=== PATIENT | female | born 1945 | race Asian ===

== ENCOUNTER 2018-05-31 09:26 | Emergency (ER) | payer MEDICARE, OTHER, SELFPAY ==
--- NOTE | 2018-05-31 09:31 | ED.ABDPAIN ---
HPI - Abdominal Pain General Chief Complaint: Abdominal Pain Stated Complaint: REALLY BAD LOWER LEFT SIDE PAIN Time Seen by Provider: 05/31/18 09:29 Source: patient Mode of arrival: ambulatory Limitations: no limitations History of Present Illness HPI narrative: Patient is a 73-year-old female here for evaluation of left-sided abdominal pain. Patient states that it started within the past couple days. No urinary symptoms. No vaginal symptoms. No change in bowel habits. No blood in his stool. No nausea vomiting. States that it does hurt with palpation. States she has had a colonoscopy within the past 5 years and she was told that it was normal. Has not tried anything for this prior to arrival Related Data Home Medications Medication Instructions Recorded Confirmed albuterol sulfate [ProAir HFA] 1 puff INHALATION PRN PRN 05/31/18 05/31/18 azithromycin 1 tab PO QDX4 05/31/18 05/31/18 montelukast 1 tab PO DAILY 05/31/18 05/31/18 Previous Rx's Medication Instructions Recorded syakelewil-znuelrjaskbeq-wnxf 0 tab PO Q4HP PRN #20 tab 06/09/17 ciprofloxacin HCl 500 mg PO BID 10 Days #20 tab 05/31/18 metronidazole [Flagyl] 500 mg PO TID 10 Days #30 tab 05/31/18 Allergies Allergy/AdvReac Type Severity Reaction Status Date / Time No Known Allergies Allergy Uncoded 11/22/17 11:44 Review of Systems Constitutional Denies fever(s) Cardiovascular Denies chest pain and Denies dyspnea Respiratory Denies dyspnea Gastrointestinal Gastrointestinal: Reports abdominal pain, Denies change in bowel habits, Denies constipation, Denies diarrhea, Denies nausea and Denies vomiting Genitourinary Denies dysuria, Denies flank pain and Denies vaginal discharge Musculoskeletal Denies myalgias and Denies arthralgias Integumentary/Breasts Denies lesions and Denies rash Hematologic/Lymphatic Denies easy bleeding and Denies easy bruising [facility] Medical History H/O: hysterectomy (Acute) Healthy adult (Acute) Social History Smoking Status: Former smoker Exam Initial Vital Signs Initial Vital Signs: Vital Signs Temperature 98.7 F 05/31/18 09:35 Pulse Rate 85 05/31/18 09:35 Respiratory Rate 20 05/31/18 09:35 Blood Pressure 120/80 05/31/18 09:35 Pulse Oximetry 100 05/31/18 09:35 Const General: cooperative, healthy appearing, comfortable, well developed, well groomed and No acute distress Orientation: alert, awake and oriented x3 HENMT Head: normal to inspection and normocephalic Resp Effort & Inspection: normal respiratory effort Auscultation: clear to auscultation bilaterally Cardio Rate: regular rate Rhythm: regular rhythm Pulses: radial pulses present GI Inspection: non-distended Palpation: soft, No firm, No mass, No rigid and tender ( left upper quadrant left lower quadrant) Back/Spine/Pelvis Back: No CVA tenderness Skin Lesions: no lesions Rashes: no rashes Neuro General: alert, awake and oriented x3 Cognition: normal cognition Speech: speech normal Extrem General: normal to inspection and capillary refill normal Psych Appearance: grossly normal and well kempt Course Orders Ordered: ED Orders 05/31/18 10:10 Complete Blood Count AUTO DIFF Stat Comprehensive Metabolic Panel Stat Lipase Stat 05/31/18 10:38 CT abdomen pelvis w con Stat Discontinued Medications Sodium Chloride (Normal Saline 0.9%) 1,000 mls @ 1,000 mls/hr IV BOLUS ONE Stop: 05/31/18 10:29 Last Infusion: 05/31/18 11:26 Dose: 0 mls/hr Admin: 05/31/18 10:30 Dose: 1,000 mls/hr Vital Signs - 8 hr 05/31/18 09:35 05/31/18 10:54 Temperature 98.7 F Pulse Rate 85 78 Respiratory Rate 20 14 Blood Pressure 120/80 Blood Pressure [Left Arm] 110/69 Pulse Oximetry 100 99 MDM - Abdominal Pain Lab Data Attestation: I reviewed the patient's lab results. Result diagrams: 05/31/18 10:10 05/31/18 10:10 Lab Results 05/31/18 05/31/18 Range/Units 10:10 10:10 WBC 10.5 (4.5-11.0) X10^3/uL RBC 4.71 (4.0-5.2) X10^6/uL Hgb 14.2 (12.0-16.0) g/dL Hct 41.7 (36-46) % MCV 88.4 (80-100) fL MCH 30.2 (26-34) PG MCHC 34.1 (30-36) % RDW 13.5 (11.6-14.8) % Plt Count 164 (150-400) X10^3/uL Neut % (Auto) 76.8 H (50-75) % Lymph % (Auto) 12.9 L (25-40) % [place]quois % (Auto) 7.5 (3-14) % Eos % (Auto) 2.1 (2-4) % Baso % (Auto) 0.7 (0-2) % Neut # (Auto) 8100 H (6954-6870) /uL Sodium 141 (137-145) mmol/L Potassium 4.2 (3.4-5.1) mmol/L Chloride 105 (98-107) mmol/L Carbon Dioxide 28 (22-32) mmol/L BUN 13 (7-17) mg/dL Creatinine 0.70 (0.52-1.04) mg/dL Estimated GFR > 60.0 (>60) mL/min BUN/Creatinine Ratio 18.6 (6-22) Glucose 94 (80-110) mg/dL Calcium 9.4 (8.4-10.2) mg/dL Total Bilirubin 0.7 (0.2-1.3) mg/dL AST 23 (14-36) IU/L ALT 27 (9-52) IU/L Alkaline Phosphatase 57 (38-126) U/L Total Protein 7.2 (6.3-8.2) g/dL Albumin 4.4 (3.5-5.0) g/dL Globulin 2.8 (1.7-4.1) g/dL Albumin/Globulin Ratio 1.6 (1.0-2.8) Lipase 110 (23-300) U/L Imaging Data CT scan - abdomen: Radiologist's impression: [address] [address] [address] Scan Report Signed Patient: Sia Quevedo#: [id number] : 4Acct:[id number] Age/Sex: 73 / FDate of Service: 05/31/18 Loc: ED Accession Number: [id number] Procedure: CT abdomen pelvis w con Ordering Provider: Hamzah Johnson D.O. PROCEDURE: CT ABDOMEN PELVIS W CON INDICATIONS: Left-sided abdominal pain TECHNIQUE: After the administration of intravenous contrast, 5 mm thick sections acquired from the diaphragm to the symphysis. 5 mm coronal and sagittal reformats were acquired. For radiation dose reduction, the following was used: automated exposure control, adjustment of mA and/or kV according to patient size. COMPARISON: [facility], CT, ABDOMEN/PELVIS WITH CONTRAST, 11/04/2009, 16:23. FINDINGS: Image quality: Excellent. ABDOMEN: Lung bases: Mild dependent atelectasis in posterior aspect of bilateral lung bases are seen. Heart size is normal. Solid organs: Liver is normal in size and enhancement. Hepatic steatosis is again seen. Gallbladder contains numerous partially calcified stones. No gallbladder wall thickening or pericholecystic fluid.. Biliary system is non dilated. Pancreas enhances normally. Spleen is normal in size and enhancement. No adrenal nodules. Kidneys demonstrate normal size and enhancement, without hydronephrosis. Peritoneum and bowel: There is no gastric or small bowel wall thickening. No evidence of bowel obstruction. Wall thickening involving distal descending colon is seen with narrowing of the lumen and moderate pericolonic fat stranding suggestive of acute diverticulitis. Appendix is visualized and is within normal limits. There is no free fluid or free air. No discrete abscess collection. Nodes and vessels: No retroperitoneal or mesenteric adenopathy by size criteria. Aorta and inferior vena cava are normal in size. Miscellaneous: No ventral hernias. PELVIS: Genitourinary: Bladder wall thickness is normal. Miscellaneous: No inguinal hernias or adenopathy. Bones: No suspicious bony lesions. No vertebral body compression fractures. IMPRESSION: 1. Finding is consistent with acute diverticulitis involving distal descending colon. No evidence of perforation. No bowel obstruction. Normal appendix. No free fluid or free air. 2. Cholelithiasis, no CT evidence of acute cholecystitis. 3. Hepatic steatosis. Dictated by: Tomasz Guevara M.D. on 05/31/2018 at 11:25 MDM Narrative Medical decision making narrative: patient with a relatively benign abdominal exam. No white blood cell count. CT scan does show acute diverticulitis which does fit her history and presentation. Will start on antibiotics. No signs of abscess. No no indication for emergent surgical consultation. Patient does have a primary care doctor. We did discuss return precautions both her and her expressed understanding and agreement with plan. Discharge Plan Departure Patient Disposition: Home Clinical Impression: Diverticulitis Instructions: Diverticulitis Activity Restrictions/Additional Instructions: Make sure you increase your fluid intake. Call your primary care doctor for a follow-up. Take all of your prescriptions as directed. Return to the emergency department for any new or worsening symptoms Prescriptions: New metronidazole [Flagyl] 500 mg tablet 500 mg PO TID 10 Days Qty: 30 RF: 0 ciprofloxacin HCl 500 mg tablet 500 mg PO BID 10 Days Qty: 20 RF: 0 No Action granphjlxf-ozhcjuudmwrzg-uema 1 EACH tablet PO Q4HP PRNQty: 20 RF: 0 azithromycin 250 mg tablet 1 tab PO QDX4 RF: 0 montelukast 10 mg tablet 1 tab PO DAILY RF: 0 albuterol sulfate [ProAir HFA] 90 mcg/actuation HFA aerosol inhaler 1 puff Inhalation PRN PRN (Reason: Shortness Of Breath) RF: 0
[2018-05-31 09:35] VITALS: BP 120/80; PULSE 85; RESP 20; TEMP 37.1; O2SAT 100; BMI 24.4
[2018-05-31 10:24] LABS: Add Manual Diff / Slide Review NO; Basophils Percent Auto 0.7 % (0-2); Eosinophils Percent Auto 2.1 % (2-4); Hematocrit 41.7 % (36-46); Hemoglobin 14.2 g/dL (12.0-16.0); Lymphocytes Percent Auto 12.9 % (25-40); Mean Corpuscular HGB Conc 34.1 % (30-36); Mean Corpuscular Hemoglobin 30.2 PG (26-34); Mean Corpuscular Volume 88.4 fL (80-100); Monocytes Percent Auto 7.5 % (3-14); Neutrophils Absolute Auto 8100 /uL (3000-5900); Neutrophils Percent Auto 76.8 % (50-75); Platelet Count 164 X10^3/uL (150-400); Red Blood Cell Count 4.71 X10^6/uL (4.0-5.2); Red Cell Distribution Width 13.5 % (11.6-14.8); White Blood Cell Count 10.5 X10^3/uL (4.5-11.0)
[2018-05-31] MEDS: SODIUM CHLORIDE 0.9% 1,000 ML 1000 ML IV (10:30)
[2018-05-31 10:34] LABS: Alanine Aminotransferase 27 IU/L (9-52); Albumin 4.4 g/dL (3.5-5.0); Albumin Globulin Ratio 1.6 (1.0-2.8); Alkaline Phosphatase 57 U/L (38-126); Aspartate Aminotransferase 23 IU/L (14-36); BUN Creatinine Ratio 18.6 (6-22); Bilirubin Total 0.7 mg/dL (0.2-1.3); Blood Urea Nitrogen 13 mg/dL (7-17); Calcium 9.4 mg/dL (8.4-10.2); Carbon Dioxide 28 mmol/L (22-32); Chloride 105 mmol/L (98-107); Estimated Glomerular Filt Rate > 60.0 mL/min (>60); Globulin 2.8 g/dL (1.7-4.1); Glucose 94 mg/dL (80-110); HEMOLYSIS < 15 (0-50); Lipase 110 U/L (23-300); Potassium 4.2 mmol/L (3.4-5.1); Sodium 141 mmol/L (137-145); Total Protein 7.2 g/dL (6.3-8.2)
--- NOTE | 2018-05-31 10:38 | DI.CT.S_ITS ---
PROCEDURE: CT ABDOMEN PELVIS W CON INDICATIONS: Left-sided abdominal pain TECHNIQUE: After the administration of intravenous contrast, 5 mm thick sections acquired from the diaphragm to the symphysis. 5 mm coronal and sagittal reformats were acquired. For radiation dose reduction, the following was used: automated exposure control, adjustment of mA and/or kV according to patient size. COMPARISON: [facility], CT, ABDOMEN/PELVIS WITH CONTRAST, 11/04/2009, 16:23. FINDINGS: Image quality: Excellent. ABDOMEN: Lung bases: Mild dependent atelectasis in posterior aspect of bilateral lung bases are seen. Heart size is normal. Solid organs: Liver is normal in size and enhancement. Hepatic steatosis is again seen. Gallbladder contains numerous partially calcified stones. No gallbladder wall thickening or pericholecystic fluid.. Biliary system is non dilated. Pancreas enhances normally. Spleen is normal in size and enhancement. No adrenal nodules. Kidneys demonstrate normal size and enhancement, without hydronephrosis. Peritoneum and bowel: There is no gastric or small bowel wall thickening. No evidence of bowel obstruction. Wall thickening involving distal descending colon is seen with narrowing of the lumen and moderate pericolonic fat stranding suggestive of acute diverticulitis. Appendix is visualized and is within normal limits. There is no free fluid or free air. No discrete abscess collection. Nodes and vessels: No retroperitoneal or mesenteric adenopathy by size criteria. Aorta and inferior vena cava are normal in size. Miscellaneous: No ventral hernias. PELVIS: Genitourinary: Bladder wall thickness is normal. Miscellaneous: No inguinal hernias or adenopathy. Bones: No suspicious bony lesions. No vertebral body compression fractures. IMPRESSION: 1. Finding is consistent with acute diverticulitis involving distal descending colon. No evidence of perforation. No bowel obstruction. Normal appendix. No free fluid or free air. 2. Cholelithiasis, no CT evidence of acute cholecystitis. 3. Hepatic steatosis. Dictated by: Tomasz Guevara M.D. on 05/31/2018 at 11:25 Approved by: Tomasz Guevara M.D. on 05/31/2018 at 11:37
[2018-05-31 10:54] VITALS: BP 110/69; PULSE 78; RESP 14; O2SAT 99
[2018-05-31 12:05] VITALS: BP 144/77; PULSE 84; RESP 20; O2SAT 98
== END 2018-05-31 12:06 | disposition home or self-care (01) ==
PROVIDERS: Emergency Provider Emergency Medicine; Family Provider Family Medicine; PCP Family Medicine
DX: K57.92 Diverticulitis of intestine, part unspecified, without perforation or abscess without bleeding (principal)
CPT/HCPCS: 36591; 74177; 80053; 81003; 83690; 85025; 96360; 99283; 99285; Q9967

== ENCOUNTER → 2018-06-18 07:54 | Outpatient (CLI) | payer MEDICARE, OTHER, SELFPAY ==
--- NOTE | 2018-06-18 | DI.US.S_ITS ---
PROCEDURE: US ABDOMEN COMPLETE INDICATIONS: GALL STONES TECHNIQUE: Real-time scanning was performed of the abdominal and retroperitoneal organs, with image documentation. COMPARISON: [facility], CT, ABDOMEN/PELVIS WITH CONTRAST, 11/04/2009, 16:23. [facility], CT, CT ABDOMEN PELVIS W CON, 05/31/2018, 10:54. FINDINGS: Liver: Liver is diffusely increased in echogenicity. Rounded hypoechoic focus present within the lateral left hepatic lobe measuring 0.8 x 1.1 x 1.4 cm.. Normal hepatic size. Gallbladder: Multiple gallstones present. No gallbladder wall thickening or pericholecystic fluid. Negative sonographic Lopez sign. Biliary ducts: Intrahepatic bile ducts are non-dilated. Extrahepatic bile duct caliber measures 3.5 mm. Normal is 6-7 mm or less in diameter, or 10 mm or less post-cholecystectomy. Pancreas: Visualized portions of the pancreas are sonographically normal. Spleen: Spleen is normal in size and homogeneous in echotexture. Kidneys: Kidneys are normal in size and echotexture. Right kidney measures 9.1 cm long; left kidney measures 10.6 cm long. No hydronephrosis or nephrolithiasis. No solid masses. Aorta: Visualized aorta is normal in caliber at less than 3 cm. Iliacs: Proximal common iliac arteries are normal in caliber at less than 2.5 cm. IVC: Intrahepatic inferior vena cava is patent. Miscellaneous: No free abdominal fluid. IMPRESSION: 1. Increased hepatic echogenicity noted possibly related to hepatic steatosis but other sources of hepatocellular disease cannot be excluded. Recommend clinical correlation. 2. 1.1 x 0.8 x 1.4 cm hypoechoic focus within the left hepatic lobe. Recommend hepatic protocol CT for further assessment to exclude underlying neoplastic mass. 3. Cholelithiasis without acute cholecystitis. Dictated by: Aidan CROWELL Interpreted: Chelsie Henry MD on 06/18/2018 at 9:52 Approved by: Chelsie Henry M.D. on 06/18/2018 at 16:23
== END ==
PROVIDERS: Family Provider Family Medicine; PCP Family Medicine; Visit Provider Family Medicine
DX: K80.80 Other cholelithiasis without obstruction (principal); K76.9 Liver disease, unspecified
CPT/HCPCS: 76700

== ENCOUNTER → 2018-06-21 11:25 | Outpatient (CLI) | payer MEDICARE, OTHER, SELFPAY ==
[2018-06-21 14:24] LABS: BUN Creatinine Ratio 17.1 (6-22); Blood Urea Nitrogen 12 mg/dL (7-17); Estimated Glomerular Filt Rate > 60.0 mL/min (>60)
== END ==
PROVIDERS: Family Provider Family Medicine; PCP Family Medicine; Visit Provider Family Medicine
DX: K57.32 Diverticulitis of large intestine without perforation or abscess without bleeding (principal); K80.20 Calculus of gallbladder without cholecystitis without obstruction
CPT/HCPCS: 36415; 82565; 84520

== ENCOUNTER → 2018-06-26 09:30 | Outpatient (CLI) | payer MEDICARE, OTHER, SELFPAY ==
--- NOTE | 2018-06-26 | DI.CT.S_ITS ---
PROCEDURE: CT ABDOMEN WO/W CON INDICATIONS: ABDOMINAL PAIN RIGHT UPPER TECHNIQUE: 4 phase scanning was performed. Non-contrast 5 mm axial sections acquired from the diaphragm to the iliac crests. Following the administration of intravenous contrast, 5 mm thick arterial-phase, portal venous-phase, and 5-minute delayed phase images were acquired through the liver. 5 mm thick coronal and sagittal reformats were performed. For radiation dose reduction, the following was used: automated exposure control, adjustment of mA and/or kV according to patient size. COMPARISON: [facility], CT, CT ABDOMEN PELVIS W CON, 05/31/2018, 10:54. [facility], US, US ABDOMEN COMPLETE, 06/18/2018, 9:17. FINDINGS: Image quality: Excellent. Lung bases: Lung bases are clear. Heart size is normal. Liver: The liver demonstrates normal size. The liver density and enhancement characteristics are within normal limits, without significant fatty infiltration by CT. In this patient with this given history, scrutiny is given to the left lateral aspect of the liver at the site of the apparent small nodule seen on the recent prior ultrasound. No CT correlate is seen for this focus. Other solid organs: Gallbladder demonstrates numerous gallstones within its lumen. Biliary system is non dilated. Pancreas is normal in morphology. Spleen is normal in size and enhancement. No adrenal nodules. Both kidneys demonstrate normal size and enhancement, without hydronephrosis or nephrolithiasis. Nodes and vessels: No retroperitoneal or mesenteric adenopathy by size criteria. Aorta and inferior vena cava are normal in size. Bowel and peritoneum: Unenhanced bowel loops are normal in caliber. No free fluid or air. Bones: No suspicious bony lesions. No vertebral body compression fractures. Age-appropriate bony degenerative changes are seen, which are most prominent at the L4-L5 level. Miscellaneous: A trace periumbilical hernia is seen, containing fat. IMPRESSION: No correlate is seen for the ultrasound visible focus. This may be related to artifact or potentially to a benign process. Incidental note is made of: Numerous gallstones Focal L4-L5 degenerative change Trace periumbilical hernia Dictated by: Donato Galicia M.D. on 06/26/2018 at 11:17 Approved by: Donato Galicia M.D. on 06/26/2018 at 11:25
== END ==
PROVIDERS: Family Provider Family Medicine; PCP Family Medicine; Visit Provider Family Medicine
DX: R10.11 Right upper quadrant pain (principal); K80.80 Other cholelithiasis without obstruction; M51.36 Other intervertebral disc degeneration, lumbar region
CPT/HCPCS: 74170; Q9967

== ENCOUNTER 2018-08-30 12:44 | Day surgery (SDC) | payer MEDICARE, OTHER, SELFPAY ==
[2018-08-27 09:03] VITALS: BMI 24.4
[2018-08-30] VITALS (17 sets, daily range): BP systolic 105–157; BP diastolic 63–82; PULSE 56–96; RESP 12–18; TEMP 36.1–36.9; O2SAT 93–99; BMI 24.4
--- NOTE | 2018-08-30 | PATH_ITS ---
[facility] Accession Number: [id number] . 01 Material submitted: . GALLBLADDER . 02 Diagnosis: Gallbladder: Cholelithiasis with associated chronic cholecystitis. MRV/09/03/2018 . 02 Electronically signed: . Grey Miguel MD, Pathologist NPI- [id number] . 01 Gross description: . Received in formalin, labeled gallbladder, is an opened gallbladder (length-7.3 cm, diameter-2.8 cm) with sandoval-green smooth and shiny serosa and a patent cystic duct. No lymph nodes are identified. The lumen contains multiple dark red-brown shiny smooth hard calculi (4.7 x 3.2 x 1.2 cm) with bryan cut surfaces. The mucosa is prado smooth and flat. The wall is up to 0.1 cm thick. No nodules, masses or lesions are identified. Section code: (A1) cystic duct resection margin and two serial sections from the body; (A2) two longitudinal sections from the fundus. ([id number]) /[facility] . 02 Pathologist provided ICD-10: K80.64 . 02 CPT . 102206 Performed at: 01 [facility] [address], [place], [place] [id number] MD Power Lynn MD Phone: [phone] Performed at: 02 [facility] [place] [address] [place], [place] [id number] MD Marleny Oro MD Phone: [phone]
[2018-08-30] MEDS: LACTATED RINGERS 1,000 ML 100 ML IV (13:48)
[2018-08-30] MEDS: CEFAZOLIN 2 GM/100 ML FROZ.PIGGY IV (15:28)
--- NOTE | 2018-08-30 15:33 | SUR.OPER ---
Supine on padded OR bed, head on pillow, safety belt at thigh, left arm padded and tucked at side. Right arm secured on padded arm oard <90 degrees abduction. Legs uncrossed. Padded footboard in place. Tape over blanket to secure lower legs.
[2018-08-30] MEDS: BUPIVACAINE 0.5% (PF) VIAL 30 ML INJ (16:07)
[2018-08-30] MEDS: LACTATED RINGERS 1,000 ML 42 ML IV (16:45)
--- NOTE | 2018-08-30 17:15 | PM.OP.1 ---
Operative Date/Time/Diagnoses Date of procedure: 08/30/18 Time of procedure: 17:15 Post-op diagnosis: same (Chronic) Procedure & Clinicians Procedure: Laparoscopic cholecystectomy Same procedure as scheduled: Yes Indications: Gallstones Surgeon: David Ma Click Yes if Unassisted: Yes Anesthesia Type: General Operative Notes Findings: Thickened gallbladder filled with stones Closure Type: primary Specimen(s): other (Gallbladder and stones) Implants & Drains: None Estimated Blood Loss (mL): 30 Procedure in detail: The patient was placed supine on the operating room table and underwent general endotracheal anesthesia. She was prepped and draped in the usual fashion. Local anesthetic was infiltrated beneath the umbilicus. Small incision was made and carried down level of fascia the fascia was opened under direct vision as was the peritoneal cavity. A 12 mm port was inserted after placing 2 stay sutures of 0 Vicryl. The abdomen is insufflated and 3 additional ports were placed in the right costal margin after reposition the patient. The gallbladder was identified is a thickened weight structure. It was grasped and elevated. It was encased in fat lower half. This was dissected off. A ductal structure singular nature going directly gallbladder was identified and 4 clips were placed across it was divided leaving 3 new patient. I could not identify an artery in the new normal position despite a careful search for. There appeared to be some vascular structures entering posteriorly and these were clipped and divided leaving at least 2 clips on each. The gallbladder was then dissected from its bed and liver using cautery. It was detached removed the the umbilical port. There was spillage of the stones but these appear to be retrieved. The right upper quadrant irrigated and suctioned free of fluid. Meticulous hemostasis was achieved. The ports were all removed. The stay sutures at the umbilicus were tied and an additional 2 0 PDS was placed there. Wounds were irrigated and the skin was closed in all areas with 4 Vicryl subcuticular stitches and Steri-Strips. Dressing was applied and the patient was awakened extubated taken recovery room good condition Complications: none Condition: stable Disposition: PACU Plan for aftercare: Follow-up in the office
[2018-08-30] MEDS: fentaNYL 100 MCG/2 ML INJ 50 MCG IV ×2 (17:38→17:44)
[2018-08-30] MEDS: BENZOCAINE/MENTHOL 1 LOZ PKT 1 EACH PO ×2 (17:41→19:45)
[2018-08-30] MEDS: ONDANSETRON 4 MG/2 ML INJ IV (18:05)
[2018-08-30] MEDS: HYDROCODONE/ACET 5/325 TABLET 2 TAB PO (18:33)
--- NOTE | 2018-08-30 19:50 | SUR.PHASEII ---
194: assumed care of pt, report given to me by Fatuma Kee RN.
== END 2018-08-30 20:00 | disposition home or self-care (01) ==
PROVIDERS: Family Provider Family Medicine; PCP Family Medicine; Visit Provider Specialist
PROC: 0FT44ZZ Resection of Gallbladder, Percutaneous Endoscopic Approach (ICD-10-PCS; CPT 47562; principal; 2018-08-30 14:00)
DX: K80.20 Calculus of gallbladder without cholecystitis without obstruction (principal); J45.909 Unspecified asthma, uncomplicated
CPT/HCPCS: 47562; 88304; J0330; J0690; J2250; J2405; J2704; J3010

== ENCOUNTER → 2018-10-29 12:39 | Outpatient (CLI) | payer MEDICARE, OTHER, SELFPAY ==
--- NOTE | 2018-10-29 | DI.MG.S_ITS ---
BILATERAL DIGITAL SCREENING MAMMOGRAM 3D/2D WITH CAD: 10/29/2018 CLINICAL: Routine screening. Comparison is made to exams dated: 09/29/2017 mammogram, 09/04/2015 mammogram, and 09/02/2014 mammogram - [facility]. The tissue of both breasts is heterogeneously dense. This may lower the sensitivity of mammography. Current study was also evaluated with a Computer Aided Detection (CAD) system. There are benign post operative findings in the right breast. No significant masses, calcifications, or other findings are seen in either breast. There has been no significant interval change. IMPRESSION: There is no mammographic evidence of malignancy. A 1 year screening mammogram is recommended. This exam was interpreted at Station ID: [id number]. NOTE: For mammograms, a report in lay terms will be sent to the patient. Approximately 15% of breast malignancies will not be visualized mammographically. In the management of a palpable breast mass, a negative mammogram must not discourage biopsy of a clinically suspicious lesion. Electronically Signed By: Piyush phoenix/bo:10/29/2018 17:22:57 letter sent: Normal Exam ACR BI-RADS Category 2: Benign Finding(s) 3342F
== END ==
PROVIDERS: Family Provider Family Medicine; PCP Family Medicine; Visit Provider Family Medicine
DX: Z12.31 Encounter for screening mammogram for malignant neoplasm of breast (principal)
CPT/HCPCS: 77063; 77067

== ENCOUNTER → 2019-02-26 11:40 | Outpatient (CLI) | payer MEDICARE, OTHER, SELFPAY ==
--- NOTE | 2019-02-26 | DI.RAD.S_ITS ---
PROCEDURE: XR CHEST 2V INDICATIONS: Cough TECHNIQUE: 2 views of the chest were acquired. COMPARISON: None. FINDINGS: Surgical changes and devices: None. Lungs and pleura: Hyperinflation suggesting COPD. Lungs are clear. No pleural effusions or pneumothorax. Mediastinum: Mediastinal contours are normal. Heart size is normal. Bones and chest wall: No suspicious bony abnormalities. Soft tissues appear unremarkable. Degenerative changes noted in the thoracic spine. IMPRESSION: No acute cardiopulmonary disease. Suspect COPD. Dictated by: Kelley Villalpando M.D. on 02/26/2019 at 13:48 Approved by: Kelley Villalpando M.D. on 02/26/2019 at 13:49
== END ==
PROVIDERS: Family Provider Family Medicine; PCP Family Medicine; Visit Provider Family Medicine
DX: R05 Cough (principal); M47.814 Spondylosis without myelopathy or radiculopathy, thoracic region
CPT/HCPCS: 71046

== ENCOUNTER → 2019-03-08 10:51 | Outpatient (CLI) | payer MEDICARE, OTHER, SELFPAY ==
--- NOTE | 2019-03-15 16:28 | PM.PFT.1 ---
Pulmonary Function Test Referral & Results Date Patient Seen: 03/08/19 Requesting provider: Mami Mcdowell Indication: Cough Results: The spirometry demonstrates an FVC of 2.56 L which is 109% of predicted. The FEV1 was measured at 2.10 L which is 120% of predicted. The FEV1/FVC ratio was 82 which is 109% of predicted. Following the administration of bronchodilator there was 27% improvement in FEF 25-75%. Lung volumes show an SVC of 2.61 L which is 110% of predicted. The diffusing capacity was measured at 16.80 which is 89% of predicted. The maximum voluntary ventilation was slightly reduced Interpretation: This study demonstrates essentially normal pulmonary function There is a minimal amount of improvement in small airway flow after bronchodilator. There is minimal reduction in diffusing capacity and maximum voluntary ventilation is minimally reduced. Overall I would call this a normal study however.
== END ==
PROVIDERS: Family Provider Family Medicine; PCP Family Medicine; Visit Provider Family Medicine
DX: R05 Cough (principal)
CPT/HCPCS: 94060; 94726; 94729

== ENCOUNTER → 2019-12-31 14:47 | Outpatient (CLI) | payer MEDICARE, OTHER, SELFPAY ==
--- NOTE | 2019-12-31 | DI.MG.S_ITS ---
BILATERAL DIGITAL SCREENING MAMMOGRAM 3D/2D WITH CAD: 12/31/2019 CLINICAL: Routine screening. Comparison is made to exams dated: 10/29/2018 mammogram, 09/29/2017 mammogram, and 09/04/2015 mammogram - [facility]. The tissue of both breasts is heterogeneously dense. This may lower the sensitivity of mammography. Current study was also evaluated with a Computer Aided Detection (CAD) system. There are benign post operative findings in the right breast. No significant masses, calcifications, or other findings are seen in either breast. There has been no significant interval change. IMPRESSION: There is no mammographic evidence of malignancy. A 1 year screening mammogram is recommended. This exam was interpreted at Station ID: [id number]. NOTE: For mammograms, a report in lay terms will be sent to the patient. Approximately 15% of breast malignancies will not be visualized mammographically. In the management of a palpable breast mass, a negative mammogram must not discourage biopsy of a clinically suspicious lesion. Electronically Signed By: Piyush phoenix/bo:12/31/2019 15:30:03 letter sent: Normal Exam ACR BI-RADS Category 2: Benign Finding(s) 3342F
== END ==
PROVIDERS: Family Provider Family Medicine; PCP Family Medicine; Referring Provider Family Medicine; Visit Provider Family Medicine
DX: Z12.31 Encounter for screening mammogram for malignant neoplasm of breast (principal)
CPT/HCPCS: 77063; 77067

== ENCOUNTER → 2020-01-14 11:53 | Outpatient (CLI) | payer MEDICARE, OTHER, SELFPAY | PROVIDERS: Family Provider Family Medicine; PCP Family Medicine; Referring Provider Family Medicine; Visit Provider Family Medicine | DX: M85.851 Other specified disorders of bone density and structure, right thigh (principal); Z78.0 Asymptomatic menopausal state; M06.9 Rheumatoid arthritis, unspecified; Z87.891 Personal history of nicotine dependence | CPT/HCPCS: 77080 ==

== ENCOUNTER → 2021-01-04 11:16 | Outpatient (CLI) | payer MEDICARE, OTHER, SELFPAY ==
--- NOTE | 2021-01-04 11:18 | DI.MG.S_ITS ---
BILATERAL DIGITAL SCREENING MAMMOGRAM 3D/2D WITH CAD: 01/04/2021 CLINICAL: Routine screening. Comparison is made to exams dated: 12/31/2019 mammogram, 10/29/2018 mammogram, and 09/29/2017 mammogram - [facility]. The tissue of both breasts is heterogeneously dense. This may lower the sensitivity of mammography. Current study was also evaluated with a Computer Aided Detection (CAD) system. There are benign post operative findings in the right breast. No significant masses, calcifications, or other findings are seen in either breast. There has been no significant interval change. IMPRESSION: BENIGN There is no mammographic evidence of malignancy. A 1 year screening mammogram is recommended. This exam was interpreted at Station ID: [id number]. NOTE: For mammograms, a report in lay terms will be sent to the patient. Approximately 15% of breast malignancies will not be visualized mammographically. In the management of a palpable breast mass, a negative mammogram must not discourage biopsy of a clinically suspicious lesion. Electronically Signed By: Skinny baca/bo:01/04/2021 12:01:09 letter sent: Normal Exam ACR BI-RADS Category 2: Benign Finding(s) 3342F
== END ==
PROVIDERS: Family Provider Family Medicine; PCP Family Medicine; Referring Provider Family Medicine; Visit Provider Family Medicine
DX: Z12.31 Encounter for screening mammogram for malignant neoplasm of breast (principal)
CPT/HCPCS: 77063; 77067

== ENCOUNTER → 2022-01-05 15:43 | Outpatient (CLI) | payer MEDICARE, OTHER, SELFPAY ==
--- NOTE | 2022-01-05 15:45 | DI.MG.S_ITS ---
BILATERAL DIGITAL SCREENING MAMMOGRAM 3D/2D WITH CAD: 01/05/2022 CLINICAL: Routine screening. Comparison is made to exams dated: 01/04/2021 mammogram, 12/31/2019 mammogram, 10/29/2018 mammogram, and 09/29/2017 mammogram - [facility]. The tissue of both breasts is heterogeneously dense. This may lower the sensitivity of mammography. Current study was also evaluated with a Computer Aided Detection (CAD) system. There is a new 1.7 cm mass in the left breast central to the nipple middle depth. No other significant masses, calcifications, or other findings are seen in either breast. IMPRESSION: INCOMPLETE: NEEDS ADDITIONAL IMAGING EVALUATION The new 1.7 cm mass in the left breast is indeterminate. Additional views with possible ultrasound are recommended. This exam was interpreted at Station ID: [id number]. NOTE: For mammograms, a report in lay terms will be sent to the patient. Approximately 15% of breast malignancies will not be visualized mammographically. In the management of a palpable breast mass, a negative mammogram must not discourage biopsy of a clinically suspicious lesion. Electronically Signed By: Lobo Quan M.D. [facility]/:01/06/2022 09:36:02 letter sent: Additional Imaging Needed ACR BI-RADS Category 0: Incomplete 3340F
== END ==
PROVIDERS: Family Provider Family Medicine; PCP Family Medicine; Referring Provider Family Medicine; Visit Provider Family Medicine
DX: Z12.31 Encounter for screening mammogram for malignant neoplasm of breast (principal)
CPT/HCPCS: 77063; 77067

== ENCOUNTER → 2022-02-03 09:57 | Outpatient (CLI) | payer MEDICARE, OTHER, SELFPAY ==
--- NOTE | 2022-02-03 | DI.MG.S_ITS ---
UNILATERAL LEFT DIGITAL DIAGNOSTIC MAMMOGRAM 3D/2D WITH ADDITIONAL VIEWS: 02/03/2022 CLINICAL: Additional evaluation requested from prior study. Comparison is made to exams dated: 01/05/2022 mammogram, 01/04/2021 mammogram, 12/31/2019 mammogram, and 10/29/2018 mammogram - [facility]. The tissue of left breast is heterogeneously dense. This may lower the sensitivity of mammography. There is a new 2 cm oval high density mass with an indistinct and microlobulated margin in the left breast at 11 o'clock middle depth. This is seen in additional views. No other significant masses or calcifications are seen in the breast. IMPRESSION: INCOMPLETE: NEEDS ADDITIONAL IMAGING EVALUATION The new 2 cm oval high density mass in the left breast is indeterminate. An ultrasound is recommended. Based on the Tyrer Cuzick model (a risk assessment model) the patient's lifetime risk is 2.6% and her 10 year risk is 0.0%. According to the ACR, ACS, and NCCN guidelines, an annual breast MRI exam along with mammogram is recommended if the patient's lifetime risk is 20% or greater. This exam was interpreted at Station ID: [id number]. NOTE: For mammograms, a report in lay terms will be sent to the patient. Approximately 15% of breast malignancies will not be visualized mammographically. In the management of a palpable breast mass, a negative mammogram must not discourage biopsy of a clinically suspicious lesion. Electronically Signed By: Skinny baca/bo:02/03/2022 14:20:11 ACR BI-RADS Category 0: Incomplete 3340F
--- NOTE | 2022-02-03 | DI.US.S_ITS ---
LIMITED ULTRASOUND OF LEFT BREAST AND AXILLA: 02/03/2022 CLINICAL: Patient returns for additional imaging over a suspected mass in the left breast. Comparison is made to exams dated: 02/03/2022 mammogram, 01/04/2021 mammogram, 01/05/2022 mammogram, 12/31/2019 mammogram, and 10/29/2018 mammogram - [facility]. Color flow and real-time ultrasound of the left breast 11 o'clock, and axilla regions were performed. Perry scale images of the real-time examination were reviewed. There is a 2 cm x 1.8 cm x 1.5 cm oval mass with an indistinct margin in the left breast at 11 o'clock middle depth 1 cm from the nipple. This oval mass is hypoechoic and isoechoic with posterior acoustic enhancement. This correlates with mammography findings. No significant abnormalities were seen sonographically in the left axilla. IMPRESSION: SUSPICIOUS OF MALIGNANCY The 2 cm x 1.8 cm x 1.5 cm oval mass in the left breast is at a high suspicion for malignancy. An ultrasound guided biopsy is recommended. The findings and recommendations were discussed with the patient by the onsite radiologist, Dr. Wolff, at the time of the exam. This exam was interpreted at Station ID: [id number]. Electronically Signed By: Skinny baca/bo:02/03/2022 14:24:16 letter sent: Biopsy Required Ultrasound BI-RADS: 4c High suspicion of malignancy
== END ==
PROVIDERS: Family Provider Family Medicine; PCP Family Medicine; Referring Provider Family Medicine; Visit Provider Family Medicine
DX: R92.8 Other abnormal and inconclusive findings on diagnostic imaging of breast (principal); N63.20 Unspecified lump in the left breast, unspecified quadrant
CPT/HCPCS: 76642; 77065; G0279

== ENCOUNTER → 2022-02-10 10:28 | Outpatient (CLI) | payer MEDICARE, OTHER, SELFPAY ==
--- NOTE | 2022-02-10 | PATH_ITS ---
[facility] Accession Number: [id number] . 01 Material submitted: . breast - LEFT BREAST MASS 11:00, 1 CM FROM NIPPLE . 01 Diagnosis: Left Breast, 11 o'clock, 1 cm from Nipple, Image-Guided Core Biopsy: Mucinous carcinoma, Grade 1. -Keystone score: 5 out of 9 possible (histologic=2, nuclear=2, mitotic index =1). -In situ carcinoma: Not identified. -Greatest linear length of invasive carcinoma: 0.6 cm. -Lymphovascular invasion: Not identified. -Microcalcifications: Not identified. -Predictive markers: Estrogen receptor/progesterone receptor/HER2 by immunohistochemistry pending (reported as an addendum). [facility] 02/11/2022 1443 Local . 01 Comment: The results of this case are verbally provided by Dr. Ortiz to Dr. Jaime Palomo on 02/11/2022 at 1:30 p.m. . 01 Electronically signed: . Aishwarya Ortiz MD, Pathologist NPI- [id number] . 01 Gross description: . Received one formalin-filled container, labeled with the patient's name and left breast 11 o'clock. The specimen is received with a plastic filter in container, sample loose in container and consists of two yellow-sandoval, cylindrical-shaped portions of tissue which range in size from 0.8 x 0.3 x 0.3 cm to 1.0 x 0.2 x 0.2 cm and a large amount of blood and possible mucoid material. The specimen is entirely submitted in one cassette. Possible collection date and time per requisition: 02/10/2022 at 11:47. Total fixation time: Approximately 15 hours. ([id number]) /MAXI 02/11/2022 0239 Local . 01 Pathologist provided ICD-10: C50.912 . 01 CPT . 796258, 661854, 141987, 581363 Performed at: 01 [facility] [address] [place] [id number] MD Power Lynn MD Phone: [phone]
--- NOTE | 2022-02-10 | DI.MG.S_ITS ---
UNILATERAL LEFT DIGITAL DIAGNOSTIC MAMMOGRAM 3D/2D: 02/10/2022 CLINICAL: Post biopsy left. Comparison is made to exams dated: 02/03/2022 ultrasound, 02/03/2022 mammogram, and 01/05/2022 mammogram - [facility]. The tissue of left breast is heterogeneously dense. This may lower the sensitivity of mammography. The biopsy clip is in the targeted area. IMPRESSION: INCOMPLETE: NEEDS ADDITIONAL IMAGING EVALUATION Biopsy clip is in the targeted area. Based on the Tyrer Cuzick model (a risk assessment model) the patient's lifetime risk is 2.6% and her 10 year risk is 0.0%. According to the ACR, ACS, and NCCN guidelines, an annual breast MRI exam along with mammogram is recommended if the patient's lifetime risk is 20% or greater. This exam was interpreted at Station ID: [id number]. NOTE: For mammograms, a report in lay terms will be sent to the patient. Approximately 15% of breast malignancies will not be visualized mammographically. In the management of a palpable breast mass, a negative mammogram must not discourage biopsy of a clinically suspicious lesion. Electronically Signed By: Kelley Villalpando M.D. fx/:02/10/2022 14:15:51 ACR BI-RADS Category 0: Incomplete 3340F
--- NOTE | 2022-02-10 | DI.US.S_ITS ---
ULTRASOUND GUIDED BIOPSY LEFT BREAST USING VACUUM DEVICE WITH POST MAMMOGRAPHIC AND ULTRASOUND IMAGIN02/10/2022 CLINICAL: Left breast mass. PATIENT CONSENT: Risks (minor bleeding, infection, vasovagal reaction and repeat procedure), benefits and alternatives were explained to the patient and written informed consent was obtained. Correlation is made to exams dated: 02/03/2022 ultrasound, 02/03/2022 mammogram, 01/05/2022 mammogram, 01/04/2021 mammogram, 12/31/2019 mammogram, and 10/29/2018 mammogram - [facility]. An ultrasound guided biopsy using real-time ultrasound was performed for the oval mass located in the left breast at 11 o'clock posterior depth. This was described on the previous ultrasound report. The skin was prepped in the usual manner. Local anesthetic was administered to the access site. The abnormality was approached from the lateral aspect. A 13 gauge biopsy needle was placed adjacent to the abnormality under ultrasound guidance. Once the needle was documented to be in the correct location, five specimens were obtained using the Mammotome biopsy system. Post procedure mammographic and ultrasound imaging demonstrates the clip at the targeted area. The specimens were sent to the laboratory for pathological analysis. IMPRESSION: ULTRASOUND GUIDED BIOPSY MALIGNANT Ultrasound guided biopsy of the mass in the left breast posterior depth was successful. Pathology indicates malignant invasive mucinous carcinoma. Pathology results are concordant with imaging findings. A surgical/oncologic consultation is recommended. This exam was interpreted at Station ID: [id number]. Kelley Brasher M.D. fx,aty/:02/16/2022 19:28:20
== END ==
PROVIDERS: Family Provider Family Medicine; PCP Family Medicine; Referring Provider Family Medicine; Visit Provider Family Medicine
DX: C50.212 Malignant neoplasm of upper-inner quadrant of left female breast (principal); Z17.0 Estrogen receptor positive status [ER+]
CPT/HCPCS: 19083; 77065

== ENCOUNTER 2022-02-15 06:16 | Day surgery (SDC) | payer MEDICARE, OTHER, SELFPAY ==
[2022-02-15 07:16] LABS: COVID19 -Nasal RAPID Negative (Negative)
[2022-02-15 07:19] VITALS: BP 110/79; PULSE 80; RESP 16; TEMP 36.2; O2SAT 100; BMI 23.4
[2022-02-15 07:28] VITALS: BMI 23.4
[2022-02-15] MEDS: LACTATED RINGERS 1,000 ML 200 ML IV (07:35)
--- NOTE | 2022-02-15 07:40 | PM.HP.1 ---
History of Present Illness History of Present Illness Date Patient Seen: 02/15/22 Time Patient Seen: 07:40 Chief complaint: SDC Narrative: The patient presents for colorectal screening. She had a previous colonoscopy approximately 5 years ago which she reports was normal. No personal or family history of colon cancer. On further history denies any recent gastrointestinal symptoms she does have remote history of diverticulitis.. No nausea, vomiting, abdominal pain, loss of appetite, unexplained weight loss, change in bowel habits, diarrhea, constipation, melena, hematochezia, or bright red blood per rectum. Patient History Medical History Healthy adult History of diverticulitis Surgical History H/O: hysterectomy Family & Social History Social History: household members spouse Tobacco & Substance use: Tobacco type cigarettes Smoking Status Former smoker alcohol intake never Substance Use Type does not use Meds Home Medications and Allergies Home Medications Medication Instructions Recorded Confirmed Type albuterol sulfate 90 mcg/actuation 1 puff inhalation PRN PRN 05/31/18 02/15/22 History aerosol inhaler Shortness Of Breath montelukast 10 mg tablet 1 tab PO DAILY 05/31/18 02/15/22 History aspirin 81 mg tablet,delayed 81 mg PO DAILY 08/22/18 02/15/22 History release calcium carbonate 600 mg calcium 600 mg PO DAILY 08/22/18 02/15/22 History (1,500 mg) tablet (Calcium) cholecalciferol (vitamin D3) 50 2,000 unit PO DAILY 08/22/18 02/15/22 History mcg (2,000 unit) capsule coenzyme [id number]-[id number] E 100 mg-100 1 cap PO DAILY 08/22/18 02/15/22 History unit capsule acyclovir 400 mg tablet 400 mg PO DAILY 02/15/22 02/15/22 History Allergies Allergy/AdvReac Type Severity Reaction Status Date / Time No Known Drug Allergies Allergy Verified 02/15/22 07:29 Exam Vital Signs (past 8 hours): - 02/15/22 07:19 Temperature 97.1 F L Pulse Rate 80 Respiratory Rate 16 Blood Pressure 110/79 Pulse Oximetry 100 Oxygen Delivery Method Room Air Oxygen Delivery Method Room Air Narrative Exam Narrative: General adult woman alert oriented no acute distress Abdomen soft nontender nondistended Extremities warm well perfused Objective Labs Labs: Laboratory Results - last 24 hr 02/15/22 06:40 SARS-CoV-2 (PCR) Negative Assessment & Plan Assessment & Plan narrative: The patient requires colorectal screening and colonoscopy is recommended. Technical details were discussed. Risks, benefits, alternatives explained. Risks including but not limited to myocardial infarction, aspiration, bleeding, pain, missed lesion, incomplete examination, need for further radiographic studies, colonic perforation, and need for major abdominal surgery were discussed. All questions were answered to their satisfaction, and they are in agreement with this plan. Time Spent With Patient Critical Care time: I spent a total of [] minutes of critical care time on this patient's care today; this time is exclusive of procedural time.
[2022-02-15] MEDS: fentaNYL 250 MCG/5 ML INJ 50 MCG IV (07:50)
[2022-02-15] MEDS: MIDAZOLAM 5 MG/5 ML VIAL 3 MG IV (07:50)
--- NOTE | 2022-02-15 08:09 | P.OP.COLON_ITS ---
Operative Date/Time/Diagnoses Date of procedure: 02/15/22 Time of procedure: 08:09 Pre-op diagnosis: Screening Post-op diagnosis: same Procedure & Clinicians Study performed: Colonoscopy Same procedure as scheduled: Yes Indications: Screening Surgeon: Danilo Barney Procedure Notes Procedure in detail: Medications: Conscious sedation using 3 mg IV midazolam and 50 mcg IV of fentanyl The history and physical was performed/updated and the patient is ASA class is 2. The procedure was discussed in detail with the patient. Potential risks complications including infection, bleeding, missed diagnosis, perforation, need for surgery, and were explained. Their questions were answered and informed consent was obtained. Patient was brought to the procedure room and placed standard monitoring equipment. The patient's vital signs were monitored continuously throughout the entire procedure. Prior to starting time-out was performed. The patient was placed in the left lateral recumbent position. Procedural sedation was administ ered. Examination began with a thorough inspection of the perianal area there was no evidence of fissures, fistulae, external hemorrhoids or cutaneous malignancy. The colonoscopy scope was then placed into the anal canal and was advanced to the cecum, which was identified by the ileocecal valve, the appendiceal orifice and the confluence of the taenia. The scope was then slowly withdrawn examining colon thoroughly in all directions, irrigating it of any residual stool. FINDINGS 1. No masses polyps 2. [id number] The patient tolerated the procedure well. They will be discharged once criteria are met. The prep was of good/excellent quality. The withdrawl time was 6 minutes. The sedation time was 16 minutes. Specimen(s): none sent Complications: none Impression: Normal colonoscopy Post-procedure Recommendations: Colonoscopy in 10 years and High fiber diet Disposition: same day surgery
[2022-02-15 08:11] VITALS: BP 108/62; PULSE 73; RESP 14; TEMP 36.5; O2SAT 99
[2022-02-15 08:15] VITALS: BP 106/69; PULSE 72; RESP 14; O2SAT 100
[2022-02-15 08:20] VITALS: BP 101/68; PULSE 80; RESP 16; O2SAT 98
[2022-02-15 08:26] VITALS: BP 114/76; PULSE 81; RESP 18; TEMP 36.6; O2SAT 98
--- NOTE | 2022-02-15 08:30 | SUR.PHASEII ---
Discharge instructions went over with her. Pt has no complaints Pt denies any pain and nausea. Pt to be discharged with her .
--- NOTE | 2022-02-15 08:42 | SUR.PHASEII ---
Discharge instructions reviewed with pt and she verbalized understanding.
== END 2022-02-15 08:55 | disposition home or self-care (01) ==
PROVIDERS: Family Provider Family Medicine; PCP Family Medicine; Referring Provider Surgery; Visit Provider Surgery
PROC: 0DJD8ZZ Inspection of Lower Intestinal Tract, Via Natural or Artificial Opening Endoscopic (ICD-10-PCS; CPT 45378; principal; 2022-02-15 07:45)
DX: Z12.11 Encounter for screening for malignant neoplasm of colon (principal); Z20.822 Contact with and (suspected) exposure to COVID-19; K57.30 Diverticulosis of large intestine without perforation or abscess without bleeding
CPT/HCPCS: G0121; 87635; 99152; C9803; J2250; J3010

== ENCOUNTER → 2022-03-17 10:01 | Outpatient (CLI) | payer MEDICARE, OTHER, SELFPAY ==
[2022-03-17 10:43] LABS: COVID19 -Nasal RAPID Negative (Negative)
== END ==
PROVIDERS: Family Provider Family Medicine; PCP Family Medicine; Visit Provider Surgery
DX: Z20.822 Contact with and (suspected) exposure to COVID-19 (principal); Z01.812 Encounter for preprocedural laboratory examination
CPT/HCPCS: 87635; C9803

== ENCOUNTER → 2022-03-18 07:43 | Outpatient (CLI) | payer MEDICARE, OTHER, SELFPAY ==
--- NOTE | 2022-03-18 07:44 | DI.NM.S_ITS ---
PROCEDURE: NM SENTINEL NODE INJECT ONLY RADIOPHARMACEUTICAL: 1.0 mCi Millipore filtered Tc-99m sulfur colloid. INDICATIONS: Left breast cancer COMPARISON: None. PROCEDURE: The area around the nipple was prepped and draped in a sterile fashion. Tc-99m sulfur colloid was injected intra-dermally around the outer edge of the areola in the left breast. No image was obtained. IMPRESSION: Administration of radiotracer into the left breast periareolar region for intra-operative sentinel lymph node localization. Dictated by: Carmella Mcarthur MD, PhD on 03/18/2022 at 9:55 Approved by: Carmella Mcarthur MD, PhD on 03/18/2022 at 9:55
== END ==
PROVIDERS: Family Provider Family Medicine; PCP Family Medicine; Referring Provider Surgery; Visit Provider Surgery
DX: C50.912 Malignant neoplasm of unspecified site of left female breast (principal)
CPT/HCPCS: 38792; A9541

== ENCOUNTER 2022-03-18 07:45 | Day surgery (SDC) | payer MEDICARE, OTHER, SELFPAY ==
[2022-03-18] VITALS (8 sets, daily range): BP systolic 134–157; BP diastolic 70–88; PULSE 64–80; RESP 12–16; TEMP 36.1–36.8; O2SAT 95–100; BMI 24.0
--- NOTE | 2022-03-18 | PATH_ITS ---
[facility] Accession Number: [id number] . 01 Material submitted: . PART A: breast - LEFT BREAST PART B: lymph node - LEFT SENTINEL LYMPH NODES . 01 Clinical history: . SDC MALIGNANT NEOPLASM OF UNSPECIFIED SITE A: SUTURE LONG LATERAL, SHORT SUPERIOR . 01 Diagnosis: A. Left Breast, Mastectomy: Mucinous carcinoma. Please see CAP Summary Data below. . B. Left [place] Lymph Nodes, Excision: Five sentinel lymph nodes negative for metastatic carcinoma. Please see CAP Summary Data below. . CASE SUMMARY: Invasive carcinoma of breast. . Procedure: Total mastectomy. Specimen laterality: Left. Tumor site: 11 o'clock. Histologic type: Mucinous carcinoma. Histologic grade (Gil Histologic Score). Glandular/tubular differentiation: Score 3. Nuclear pleomorphism: Score 2. Mitotic rate: Score 1. Overall grade: Grade 2. Tumor size: Greatest dimension of largest invasive focus: 18 mm. Tumor focality: Single focus of invasive carcinoma. Ductal carcinoma in situ: Not identified. Lymphovascular invasion: Not identified. Dermal lymphovascular invasion: Not identified. Microcalcifications: Present in nonneoplastic tissue. Treatment effect in the breast: No known presurgical therapy. Treatment effect in the lymph nodes: Not applicable. . Margin status for invasive carcinoma: All margins negative for invasive carcinoma. Distance from invasive carcinoma to closest margin: 2.5 cm. Closest margin to invasive carcinoma: Posterior. . Regional lymph node status: All regional lymph nodes negative for tumor. Total number of lymph nodes examined: Five. Number of sentinel nodes examined: Five. . Pathologic stage classification (AJCC 8th Edition) pT category: pT1c. pN category: pN0(sn). pM category: Not applicable. . Additional findings: Changes consistent with prior biopsy procedure. . Breast biomarker testing performed on previous biopsy ([id number]): Estrogen receptor status: Positive, 95%, strong intensity. Progesterone receptor status: Positive, 20%, intermediate intensity. HER2 by immunohistochemistry: Negative, score 0. [facility] 03/22/2022 1243 Local . 01 Electronically signed: . Marleny Oro MD, Pathologist NPI- [id number] . 01 Gross description: . A. Received in formalin labeled with the patient's name and left breast consists of an oriented excision of breast with attached ellipse of skin, nipple, and areolar complex, with a short suture designated superior and long suture designated lateral per the requisition. The specimen measures 10.2 cm SI, 12.8 cm ML and 4.5 cm AP. The cutaneous surface is prado and wrinkled while the nipple and areolar complex is slightly sunken, but otherwise unremarkable. The ellipse of skin measures 8.5 x 5.5 cm. The specimen is inked as follows: Anterior yellow, posterior black, medial blue, inferior red, lateral green, superior orange. Serial sectioning, from medial to lateral into 19 slices, reveals a firm ill-defined hemorrhagic and necrotic lesion within slices 6-15 measuring approximately 4.5 x 4.2 x 1.0 cm, with the closest margin being the posterior margin at approximately 2.5 cm. A cylindrical biopsy clip is found within slice 9, and is located 3.0 cm from the nearest posterior margin. No other lesions are identified, and the remaining parenchyma is yellow to pink fibroadipose tissue with fibrous tissue occupying approximately 20% of the cut surface. [employer] sections are submitted as follows: . A1: Central nipple. A2: Rep slice 4 with posterior margin. A3-A4: Rep slice 6 to include superior and posterior margins. A5-A6: Rep slice 7 to include posterior and inferior margins. A7: Rep slice 8. A8-A9: Rep slice 9 to include posterior margin. A10-A12: Rep 12 to include posterior, superior, and inferior margins. A13: Rep 15 to include posterior margin. A14: Rep medial margin. A15: Rep lateral margin. . The specimen was removed on 03/18/2022 with no removal time or time in formalin provided. Cold ischemic time cannot be calculated. Total fixation time is less than 72 hours. . B. Received in formalin labeled with the patient's name and left sentinel lymph nodes consist of multiple fragments of soft yellow adipose aggregating to 3.4 x 2.6 x 1.7 cm with five prado lymph node candidates ranging from 0.3 to 1.5 cm in greatest dimension. The specimen is submitted as follows: . B1: Single lymph node candidate; bisected. B2: Three lymph node candidates, intact. B3: Single intact lymph node candidate. ([id number]) /MRV 03/20/2022 1908 Local . 01 Pathologist provided ICD-10: C50.912 . 01 CPT . 546073, 690041 Specimen Comment: A courtesy copy of this report has been sent to [phone] Performed at: 01 [facility] [address] [place] [address], [place], [place] [id number] MD Power Lynn MD Phone: [phone]
[2022-03-18] MEDS: LACTATED RINGERS 1,000 ML 100 ML IV (08:27)
--- NOTE | 2022-03-18 11:03 | PM.PREOP ---
Pre-operative Note Interval Note History & Physical reviewed/Exam performed by Physician: Yes Changes to H&P: No
--- NOTE | 2022-03-18 12:55 | SUR.PREOP ---
Updated patient regarding status and apologized for delay. Also called patient's and gave an update.
--- NOTE | 2022-03-18 15:15 | SUR.OPER ---
Supine on padded OR bed, head on pillow, arms secured on padded arm boards at <90 degrees abduction, legs uncrossed, safety belt at thigh, tape over blanket over lower legs.
[2022-03-18] MEDS: CEFAZOLIN 2 GM IN 0.9 % NACL 100 ML IV (15:45)
[2022-03-18] MEDS: LIDOCAINE 1% 20 ML INJ (15:59)
[2022-03-18] MEDS: BUPIVACAINE 0.5% W/ EPI (PF) 30 ML VIAL INJ (16:03)
[2022-03-18] MEDS: METHYLENE BLUE 50 MG/10 ML VIAL 10 MG IV (16:05)
[2022-03-18] MEDS: ACETAMINOPHEN 325 MG TABLET 650 MG PO (17:39)
--- NOTE | 2022-03-18 18:17 | SUR.PHASEII ---
1800: Pt A&Ox4, VSS, dressing C/D/I, reports pain as tolerable and ready to discharge home. Discharge instructions reviewed with patient and spouse with teaching on proper drain emptying/monitoring completed with demonstration and teachback, and time allowed for questions. Written instructions given to spouse. Pt left unit stable via w/c and RN assist to ER entrance where spouse will transport pt home.
--- NOTE | 2022-03-18 21:15 | P.OP_ITS ---
Operative Date/Time/Diagnoses Date of procedure: 03/18/22 Time of procedure: 21:15 Pre-op diagnosis: left breast cancer Post-op diagnosis: same Procedure & Clinicians Procedure: left mastectomy with sentinel lymph node biopsy Same procedure as scheduled: Yes Indications: invasive left breast cancer Surgeon: Danilo Barney Click Yes if Unassisted: Yes Anesthesia Type: General Operative Notes Findings: firm 4 cm mass of the left breast. Several slightly firm feeling lymph nodes within the left axilla Specimen(s): other ( left breast short stitch superior long stitch lateral. Left sentinel lymph nodes) Estimated Blood Loss (mL): 50 Procedure in detail: Patient was brought to the operating room placed supine on the table. Bilateral lower extremity compression devices were applied. She received 2 g of Ancef prior to skin incision. She was intubated with an endotracheal tube. She was then prepped and draped in sterile fashion. Time-out was performed. I injected 1 mL of methylene blue diluted with 4 ml saline into the periareolar tissue and massaged it into the breast for 5 minutes. An elliptical incision around the left nipple areola complex was made with the knife. The subcutaneous tissue was divided with electrocautery. Skin flaps were raised to separate the breast tissue from the skin along the subdermal plexus. The dissection was extended superior to the clavicle, medial to the sternum, inferior the the inframamary fold and lateral to the anterior border of the latisimus dorsi. Next the breast tissue was from the underlying pectoralis fascia. The breast was passed off the field marked short stitch superior long stitch lateral. The axillary tissue was carefully dissected towards the area of maximal radioactivity. Two sentinel lymph node were identified by there high radioactivity however they had not stained blue.. The lymphatics were clipped with heomolips and transected sharply. I returned the gamma probe to the field and there was no significant background activity. However in palpating the axillary tissue there were a couple slightly firm axillary nodes were palpated and these were subsequently removed. A 19 Bulgarian Bladimir drain was placed into the cavity and secured. The wound was copiously irrigated and homeostasis was ensured. The mastectomy was closed with 3 0 Vicryl for the subcutaneous tissue and the skin was closed with 4 0 Monocryl followed by the application of Dermabond. Patient tolerated procedure well she emerged from anesthesia was extubated and transferred to recovery room in stable condition. Complications: none Post-operative Condition: stable Disposition: same day surgery
== END 2022-03-18 18:00 | disposition home or self-care (01) ==
PROVIDERS: Family Provider Family Medicine; PCP Family Medicine; Referring Provider Surgery; Visit Provider Surgery
PROC: 0HTU0ZZ Resection of Left Breast, Open Approach (ICD-10-PCS; CPT 19303; principal; 2022-03-18 13:45)
DX: C50.112 Malignant neoplasm of central portion of left female breast (principal); Z17.0 Estrogen receptor positive status [ER+]; C77.3 Secondary and unspecified malignant neoplasm of axilla and upper limb lymph nodes
CPT/HCPCS: 19303; 38500; 38792; 82962; A9541; J0690; J1100; J2250; J2405; J2704; J3010; Q9968

== ENCOUNTER → 2022-04-05 15:07 | Outpatient (CLI) | payer MEDICARE, OTHER, SELFPAY | PROVIDERS: Family Provider Family Medicine; PCP Family Medicine; Referring Provider Family Medicine; Visit Provider Family Medicine | DX: Z13.820 Encounter for screening for osteoporosis; C50.112 Malignant neoplasm of central portion of left female breast; M85.851 Other specified disorders of bone density and structure, right thigh; M85.852 Other specified disorders of bone density and structure, left thigh; Z78.0 Asymptomatic menopausal state | CPT/HCPCS: 77080 ==

== ENCOUNTER 2022-04-05 15:45 | Emergency (ER) | payer MEDICARE, OTHER, SELFPAY ==
[2022-04-05 16:09] VITALS: BP 179/80; PULSE 66; RESP 18; TEMP 36.6; O2SAT 100; BMI 23.8
--- NOTE | 2022-04-05 16:16 | DI.CT.S_ITS ---
PROCEDURE: CT FACIAL BONES WO CON INDICATIONS: fall, brusing around L eye TECHNIQUE: Noncontrast 2.5 mm thick axial images acquired from the mandible through the frontal sinuses, with coronal and sagittal reformatting. For radiation dose reduction, the following was used: automated exposure control, adjustment of mA and/or kV according to patient size. COMPARISON: None. FINDINGS: Image quality: Excellent. Bones and teeth: Orbital nathan are intact. Sinus nathan show no fracture or deformity. Nasal bones and septum are intact. Visualized portions of the mandible demonstrate no fractures or subluxation. Zygomatic arches are intact. Pterygoid plates are intact. Visualized portions of the skull base and auditory canals are intact. Sinuses: Paranasal sinuses are aerated, without fluid levels, mucosal thickening, or mucoceles. Mastoid air cells are aerated. Soft tissues: No edema, masses, or fluid collections. No enlarged lymph nodes. No soft tissue lacerations or debris. Vascular: Visualized vascular structures appear normal in the absence of contrast. Bony vascular foramina and canals are intact. IMPRESSION: No evidence of displaced facial bone fracture or mandibular fracture. Globes are and orbits intact. Dictated by: Tim Hernandez M.D. on 04/05/2022 at 16:36 Approved by: Tim Hernandez M.D. on 04/05/2022 at 16:37
--- NOTE | 2022-04-05 16:16 | DI.CT.S_ITS ---
PROCEDURE: CT HEAD/BRAIN WO CON INDICATIONS: fall, brusing around L eye TECHNIQUE: Noncontrast 4.5 mm thick angled axial sections acquired from the foramen magnum to the vertex, with coronal and sagittal reformats. For radiation dose reduction, the following was used: automated exposure control, adjustment of mA and/or kV according to patient size. COMPARISON: [facility], CT, HEAD WITHOUT CONTRAST, 06/09/2017, 11:01. FINDINGS: Image quality: Excellent. CSF spaces: Basal cisterns are patent. No extra-axial fluid collections. The ventricles are symmetric in size and shape. Brain: No intracranial bleeds or masses. There is cerebral volume loss for age, with resultant ventricular and sulcal prominence. There are periventricular and deep white matter chronic small vessel ischemic changes. There is intracranial internal carotid artery atherosclerosis. Skull and face: Calvarium and visualized facial bones appear intact, without suspicious lesions. Sinuses: Visualized sinuses and mastoids are clear. IMPRESSION: No evidence acute intracranial process. Dictated by: Tim Hernandez M.D. on 04/05/2022 at 16:35 Approved by: Tim Hernandez M.D. on 04/05/2022 at 16:36
--- NOTE | 2022-04-05 18:23 | ED_ITS ---
HPI - Fall <RICH Lin - Last Filed: 04/05/22 18:44> General Chief Complaint: Fall Stated Complaint: Fall hit left side of face Time Seen by Provider: 04/05/22 18:05 Source: patient Mode of arrival: Ambulatory History of Present Illness HPI Narrative: 77-year-old female, former smoker, presents to the emergency department with left-sided facial pain. History of left-sided mastectomy approximately 18 days ago. Patient fell at her home on Monday, 3 days ago, and hit her face on the hardwood floor. Patient was at her oncologist earlier today, and after palpating her sore left orbital bone, instructed her to come to the emergency department for evaluation. Patient denies any loss of consciousness at that time and has been controlling her pain with ibuprofen. No history of blood thinners. Related Data Home Medications Medication Instructions Recorded Confirmed albuterol sulfate 90 mcg/actuation 1 puff inhalation PRN PRN 05/31/18 04/05/22 aerosol inhaler Shortness Of Breath montelukast 10 mg tablet 1 tab PO DAILY 05/31/18 04/05/22 calcium carbonate 600 mg calcium 600 mg PO DAILY 08/22/18 04/05/22 (1,500 mg) tablet (Calcium) cholecalciferol (vitamin D3) 50 2,000 unit PO DAILY 08/22/18 04/05/22 mcg (2,000 unit) capsule coenzyme Z21-wculmqa E 100 mg-100 1 cap PO DAILY 08/22/18 04/05/22 unit capsule acyclovir 400 mg tablet 400 mg PO DAILY 02/15/22 04/05/22 Focus Factor 1 tab DAILY 03/01/22 04/05/22 biotin 5,000 mcg sublingual tablet 5,000 mcg sublingual DAILY 03/01/22 04/05/22 glucosamine sulf dipot 1 cap PO BID 03/01/22 04/05/22 chlr,msm,chond 550 mg-C 30 mg-marcial 1 mg capsule (Glucosamine Chondroitin) ketotifen fumarate 0.025 % (0.035 1 drp ophthalmic (eye) DAILY 03/01/22 04/05/22 %) eye drops vitamin B complex 1 cap PO DAILY 03/01/22 04/05/22 vitamin B12 1 mg-folic acid 0.8 mg 1 tab PO DAILY 03/01/22 04/05/22 tablet Allergies Allergy/AdvReac Type Severity Reaction Status Date / Time No Known Drug Allergies Allergy Verified 03/25/22 11:50 Review of Systems <RICH Lin - Last Filed: 04/05/22 18:44> Review of Systems Narrative: Narrative: GENERAL: Denies chills, fatigue, fever, sweats. See HPI HEENT: Denies sinus pain, ear pain, sore throat, difficulty swallowing, dizziness. Endorses left-sided facial pain and bruising. RESPIRATORY: Denies dyspnea, cough, wheezing, sputum. CARDIOVASCULAR: Denies chest pain, palpitations, edema. GASTROINTESTINAL: Denies nausea, vomiting, abdominal pain, diarrhea, constipation. : Denies dysuria, frequency, incontinence, hematuria, urinary retention, flank pain. MSK: Denies weakness, joint pain, or bony pain. SKIN: Denies rash, skin lesions, or pruritis. Endorses left-sided facial bruising. NEUROLOGIC: Denies weakness, dizziness, headache, numbness, confusion. PSYCHIATRIC: No concerning psychosocial issues. Patient History <RICH Lin - Last Filed: 04/05/22 18:44> Medical History Asthma Healthy adult History of diverticulitis Surgical History H/O: hysterectomy Social History marital status: household members: spouse Smoking Status: Former smoker alcohol intake: never Smoking Status: Former smoker Substance Use Type: does not use Exam <RICH Lin - Last Filed: 04/05/22 18:44> Narrative Exam Narrative: Exam Narrative: GENERAL: This is a well-nourished, well-developed patient, in no acute distress HEAD: Normocephalic. No Araujo signs. EYES: Pupils equal round and reactive. Extraocular motions intact. No scleral icterus, injection or drainage. Left-sided orbital bone pain, swelling and bruising. CARDIOVASCULAR: Regular rate and rhythm without murmurs, peripheral pulses intact, cap refill <2 sec. RESPIRATORY: Breath sounds equal and clear bilaterally. No wheezes, rales, or rhonchi. No cough. No increased respiratory effort. No accessory muscle use. GASTROINTESTINAL: Abdomen soft, non-tender, nondistended without guarding or rebound. No suprapubic pain. MSK: Moves all extremities. Normal range of motion, no clubbing or edema. Neurovascularly intact. NEURO: A&O x 3. SKIN: Warm, dry. Bruising and swelling of left orbital region. Initial Vital Signs Initial Vital Signs: Vital Signs Temperature 97.9 F 04/05/22 16:09 Pulse Rate 66 04/05/22 16:09 Respiratory Rate 18 04/05/22 16:09 Blood Pressure 179/80 H 04/05/22 16:09 Pulse Oximetry 100 04/05/22 16:09 Oxygen Delivery Method 04/05/22 16:09 Reviewed <Theresa Koroma MD - Last Filed: 04/06/22 08:24> Initial Vital Signs Initial Vital Signs: Vital Signs Temperature 97.9 F 04/05/22 16:09 Pulse Rate 66 04/05/22 16:09 Respiratory Rate 18 04/05/22 16:09 Blood Pressure 179/80 H 04/05/22 16:09 Pulse Oximetry 100 04/05/22 16:09 Oxygen Delivery Method 04/05/22 16:09 Course <RICH Lin - Last Filed: 04/05/22 18:44> Orders Ordered: Discontinued Medications Ibuprofen (Ibuprofen 400 Mg Tablet) 400 mg PO NOW ONE Stop: 04/05/22 18:35 Last Admin: 04/05/22 18:46 Dose: 400 mg Documented By: NR Vital Signs Vital signs: Vital Signs - 8 hr 04/05/22 16:09 Temperature 97.9 F Pulse Rate 66 Respiratory Rate 18 Blood Pressure 179/80 H Pulse Oximetry 100 Oxygen Delivery Method Room Air <Theresa Koroma MD - Last Filed: 04/06/22 08:24> Orders Ordered: Discontinued Medications Ibuprofen (Ibuprofen 400 Mg Tablet) 400 mg PO NOW ONE Stop: 04/05/22 18:35 Last Admin: 04/05/22 18:46 Dose: 400 mg Documented By: NR Vital Signs Vital signs: Vital Signs - 8 hr 04/05/22 16:09 Temperature 97.9 F Pulse Rate 66 Respiratory Rate 18 Blood Pressure 179/80 H Pulse Oximetry 100 Oxygen Delivery Method Room Air MDM - Fall <RICH Lin - Last Filed: 04/05/22 18:44> Differential Diagnosis Differential diagnosis: Likely other (Head injury) Imaging Data CT scan - head: Radiologist's Impression: [address] [address] [address] Scan Report Signed Patient: Yassine Quevedo MR#: [id number] : 1945 Acct:[id number] Age/Sex: 77 / F Date of Service: 04/05/22 Loc: ED Accession Number: [id number] ?? Procedure: CT head/brain wo con Ordering Provider: Breanna Orozco D.O. PROCEDURE:? CT HEAD/BRAIN WO CON ? INDICATIONS:? fall, brusing around L eye ? TECHNIQUE:? Noncontrast 4.5 mm thick angled axial sections acquired from the foramen magnum to the vertex, with coronal and sagittal reformats.? For radiation dose reduction, the following was used:? automated exposure control, adjustment of mA and/or kV according to patient size.? ? COMPARISON:? [facility], CT, HEAD WITHOUT CONTRAST, 06/09/2017, 11:01. ? FINDINGS:? Image quality:? Excellent.? ? CSF spaces:? Basal cisterns are patent.? No extra-axial fluid collections.? The ventricles are symmetric in size and shape.? ? Brain:? No intracranial bleeds or masses.? There is cerebral volume loss for age, with resultant ventricular and sulcal prominence.? There are periventricular and deep white matter chronic small vessel ischemic changes.? There is intracranial internal carotid artery atherosclerosis.? ? Skull and face:? Calvarium and visualized facial bones appear intact, without suspicious lesions.? ? Sinuses:? Visualized sinuses and mastoids are clear.? ? IMPRESSION:? No evidence acute intracranial process. ? ? Dictated by: Tim Hernandez M.D. on 04/05/2022 at 16:35 ? ? Approved by: Tim Hernandez M.D. on 04/05/2022 at 16:36? CT - Facial: Radiologist's Impression: [address] [address] [address] Scan Report Signed Patient: Yassine Quevedo MR#: [id number] : 1945 Acct:[id number] Age/Sex: 77 / F Date of Service: 04/05/22 Loc: ED Accession Number: [id number] ?? Procedure: CT facial bones wo con Ordering Provider: Breanna Orozco D.O. PROCEDURE:? CT FACIAL BONES WO CON ? INDICATIONS:? fall, brusing around L eye ? TECHNIQUE:? Noncontrast 2.5 mm thick axial images acquired from the mandible through the frontal sinuses, with coronal and sagittal reformatting.? For radiation dose reduction, the following was used:? automated exposure control, adjustment of mA and/or kV according to patient size.? ? COMPARISON:? None. ? FINDINGS:? Image quality:? Excellent.? ? Bones and teeth:? Orbital nathan are intact.? Sinus nathan show no fracture or deformity.? Nasal bones and septum are intact.? Visualized portions of the mandible demonstrate no fractures or subluxation.? Zygomatic arches are intact.? Pterygoid plates are intact.? Visualized portions of the skull base and auditory canals are intact.? ? Sinuses:? Paranasal sinuses are aerated, without fluid levels, mucosal thickening, or mucoceles.? Mastoid air cells are aerated.? ? Soft tissues:? No edema, masses, or fluid collections.? No enlarged lymph nodes.? No soft tissue lacerations or debris.? ? Vascular:? Visualized vascular structures appear normal in the absence of contrast.? Bony vascular foramina and canals are intact.? ? IMPRESSION:? No evidence of displaced facial bone fracture or mandibular fracture.? Globes are and orbits intact. ? ? Dictated by: Tim Hernandez M.D. on 04/05/2022 at 16:36 ? ? Approved by: Tim Hernandez M.D. on 04/05/2022 at 16:37 ? [facility] Narrative Medical decision making narrative: 77-year-old female presents emergency department with left orbital pain, bruising and swelling after falling at her home 3 days ago. Left-sided mastectomy 18 days ago. Was following up with her oncologist earlier today and after palpating her orbital region, instructed her to come to the emergency department for evaluation. Head and facial CT were both negative. Patient able to control her pain with ibuprofen. Discussed return precautions and plan of care with patient and , who were agreeable with course of action. Discharge Plan Departure Patient Disposition: Home Clinical Impression: Head injury Instructions: How to Prevent Falls Activity Restrictions/Additional Instructions: *You have been diagnosed with a head injury secondary to fall. The CT of your face and head were both normal. My assessment was encouraging I do not suspect anything dangerous at this time. Please continue to take the ibuprofen as needed for discomfort and may apply cool compresses to your cheek as needed. For any worsening symptoms that include increased headache pain, blurry vision, intolerable pain, etc. please return to the emergency department. Otherwise, follow-up with your family doctor as needed. *What to do: *Please continue to take your regular medications as directed. [ ] New medication prescriptions sent to your pharmacy: [ ] [ ] New medication written as a paper prescription [ x] No new medications given *Please follow up with your primary care provider in 2-3 days, call for an appointment. Let them know you were seen in the Emergency Department and that we ask that you be seen in follow up. We will electronically transmit a record of today's note if your PCP is in our system *If you do not have a primary care provider please contact the [facility] Resource line at [phone]. They will ask some questions about your medical history and help get you set up with a doctor in the community. ? Return to ER if you should have any new, worsening or concerning symptoms, such as worsening pain, severe headache, confusion, chest pain, difficulty breathing, fever greater than 101 F, shaking chills, persistent vomiting to the point that you cannot drink fluids, or other new or worsening symptoms. Prescriptions: No Action coenzyme K23-lvhxkrg E 100-100 mg-unit capsule 1 cap PO DAILY cholecalciferol (vitamin D3) 2,000 unit capsule 2,000 unit PO DAILY calcium carbonate [Calcium 600] 600 mg calcium (1,500 mg) tablet 600 mg PO DAILY montelukast 10 mg tablet 1 tab PO DAILY albuterol sulfate 90 mcg/actuation HFA aerosol inhaler 1 puff Inhalation PRN PRN (Reason: Shortness Of Breath) acyclovir 400 mg Tablet 400 mg PO DAILY ketotifen fumarate 0.025 % (0.035 %) Drops 1 drp OPHTHALMIC (EYE) DAILY vitamin B complex Capsule 1 cap PO DAILY vitamin C82-mnxlc acid 1-0.8 mg Tablet 1 tab PO DAILY biotin 5,000 mcg Tablet, Sublingual 5,000 mcg SUBLINGUAL DAILY Glucosamine Chondroitin 550-30-1 mg Capsule 1 cap PO BID Focus Factor 1 tab DAILY Referrals: Mami Mcdowell MD [Primary Care Provider] - Visit Report Forms: Patient Portal/API <Theresa Koroma MD - Last Filed: 04/06/22 08:24> Cosign ED Attending Cosignature Attestation: I was immediately available in the department for consultation throughout this patient's visit. I agree with documentation as above. Theresa Koroma MD
[2022-04-05] MEDS: IBUPROFEN 400 MG TABLET PO (18:46)
== END 2022-04-05 18:47 | disposition home or self-care (01) ==
PROVIDERS: Emergency Provider Registered Nurse; Family Provider Family Medicine; PCP Family Medicine
DX: S09.90XA Unspecified injury of head, initial encounter (principal); W19.XXXA Unspecified fall, initial encounter; Z13.820 Encounter for screening for osteoporosis; Z78.0 Asymptomatic menopausal state; M85.851 Other specified disorders of bone density and structure, right thigh; M85.852 Other specified disorders of bone density and structure, left thigh; C50.112 Malignant neoplasm of central portion of left female breast; Z17.0 Estrogen receptor positive status [ER+]; H57.12 Ocular pain, left eye; Z79.811 Long term (current) use of aromatase inhibitors
CPT/HCPCS: 70450; 70486; 77080; 99214; 99283

== ENCOUNTER → 2023-01-06 10:52 | Outpatient (CLI) | payer MEDICARE, OTHER, SELFPAY ==
--- NOTE | 2023-01-06 | DI.MG.S_ITS ---
UNILATERAL RIGHT DIGITAL SCREENING MAMMOGRAM 3D/2D WITH CAD: 01/06/2023 CLINICAL: Routine screening. Personal history of left breast cancer. Comparison is made to exams dated: 01/05/2022 mammogram, 01/04/2021 mammogram, 02/03/2022 mammogram, and 12/31/2019 mammogram - [facility]. The right breast is heterogeneously dense, which may obscure small masses (category c / 51-75% glandular tissue). Current study was also evaluated with a Computer Aided Detection (CAD) system. No significant masses, calcifications, or other findings are seen in the breast. There has been no significant interval change. IMPRESSION: NEGATIVE There is no mammographic evidence of malignancy. A 1 year screening mammogram is recommended. This exam was interpreted at Station ID: [id number]. NOTE: For mammograms, a report in lay terms will be sent to the patient. Approximately 15% of breast malignancies will not be visualized mammographically. In the management of a palpable breast mass, a negative mammogram must not discourage biopsy of a clinically suspicious lesion. Electronically Signed By: Piyush phoenix/bo:01/06/2023 17:33:20 letter sent: Normal Exam ACR BI-RADS Category 1: Negative [id number]
== END ==
PROVIDERS: Family Provider Family Medicine; PCP Family Medicine; Referring Provider Family Medicine; Visit Provider Family Medicine
DX: Z12.31 Encounter for screening mammogram for malignant neoplasm of breast (principal); Z85.3 Personal history of malignant neoplasm of breast
CPT/HCPCS: 77063; 77067

== ENCOUNTER → 2023-03-10 12:27 | Outpatient (CLI) | payer MEDICARE, OTHER, SELFPAY ==
--- NOTE | 2023-03-10 | DI.CT.S_ITS ---
PROCEDURE: CT ABDOMEN PELVIS W CON INDICATIONS: Hemorrhage of anus and rectum TECHNIQUE: After the administration of oral and IV contrast, axial sections were acquired from the lung bases to the pubic symphysis. Coronal and sagittal reformats were performed. For radiation dose reduction, the following was used: automated exposure control, adjustment of mA and/or kV according to patient size. COMPARISON: [facility], CT, CT ABDOMEN WO/W CON, 06/26/2018, 9:31. [facility], CT, CT ABDOMEN PELVIS W CON, 05/31/2018, 10:54. FINDINGS: Image quality: Excellent. Lung bases: Unremarkable. Heart: No significant findings. ABDOMEN: Liver: Diffuse fatty liver infiltration is noted. Gallbladder: Removed. Biliary ducts: Unremarkable. Pancreas: Unremarkable. Spleen: Unremarkable. Adrenal Glands: Unremarkable. Kidneys and Ureters: Unremarkable. Stomach and Bowel: In this patient with this given history, scrutiny is given to distal rectum and the anus. Mild generalized inflammatory change can be seen, yet without a matthew focal lesion. The more proximal colon demonstrates no significant abnormality, although distal colonic diverticulosis is seen. A normal appendix is seen. No dilated loops of small bowel are seen. No significant gastric abnormality can be seen. Peritoneum: No abnormal intraperitoneal fluid. No free air. Ventral Wall: A trace periumbilical hernia is seen, containing fat. Abdominal Nodes: No retroperitoneal or mesenteric adenopathy by size criteria. Vessels: Aorta and inferior vena cava are normal in size. PELVIS: Pelvic Organs: This patient is status post hysterectomy. No adnexal masses are seen. Bladder: Unremarkable. Pelvic Nodes: No enlarged lymph nodes. Miscellaneous: No inguinal hernias are seen. Bones: Focal lower lumbar spine degenerative change can be seen. Milder degenerative changes are seen elsewhere. IMPRESSION: There is generalized inflammatory change seen within the region of the anus, yet without a discrete focal abnormality seen on this CT study. Please correlate with endoscopy findings. Additional findings: Cholecystectomy Fatty liver infiltration Trace fat containing periumbilical hernia Hysterectomy Normal appendix Diverticulosis, without active diverticulitis Focal lower lumbar spine degenerative change Dictated by: Donato Galiica M.D. on 03/10/2023 at 16:38 Approved by: Donato Galicia M.D. on 03/10/2023 at 16:42
== END ==
PROVIDERS: Family Provider Family Medicine; PCP Family Medicine; Referring Provider Registered Nurse; Visit Provider Registered Nurse
DX: K62.5 Hemorrhage of anus and rectum (principal); R10.31 Right lower quadrant pain; R53.83 Other fatigue; K57.90 Diverticulosis of intestine, part unspecified, without perforation or abscess without bleeding; M47.816 Spondylosis without myelopathy or radiculopathy, lumbar region; K76.0 Fatty (change of) liver, not elsewhere classified; Z90.49 Acquired absence of other specified parts of digestive tract; Z90.710 Acquired absence of both cervix and uterus
CPT/HCPCS: 74177; 99213; Q9967

== ENCOUNTER 2023-03-21 14:11 | Day surgery (SDC) | payer MEDICARE, OTHER, SELFPAY ==
--- NOTE | 2023-03-21 | PATH_ITS ---
[facility] Accession Number: [id number] No. of containers..01 Tissue . 01 Material submitted: . stomach - STOMACH . 01 Diagnosis: Stomach, Biopsy: Gastric body mucosa with mild chronic gastritis. No evidence of Helicobacter organisms on H/E stain. Negative for intestinal metaplasia. Negative for dysplasia or malignancy. [facility] 03/31/2023 1446 Local . 01 Electronically signed: . Marleny Oro MD, Pathologist NPI- [id number] . 01 Gross description: . STOMACH: Received in formalin is 1 fragment(s) of prado, soft tissue measuring 0.5 x 0.2 x 0.2 cm submitted entirely in 1 cassette(s) /AAY 03/23/2023 1245 Local . 01 Pathologist provided ICD-10: R10.9 . 01 CPT . 248184 Specimen Comment: A courtesy copy of this report has been sent to [phone] Performed at: 01 [facility] [address] [place] [address] [facility], [place], [place] [id number] MD Power Lynn MD Phone: [phone]
[2023-03-21 14:40] VITALS: BP 120/73; PULSE 76; RESP 16; TEMP 36; O2SAT 100; BMI 24.0
[2023-03-21] MEDS: LACTATED RINGERS 1,000 ML 200 ML IV ×2 (14:51→16:44)
--- NOTE | 2023-03-21 15:01 | PM.PREOP ---
Pre-operative Note Interval Note History & Physical reviewed/Exam performed by Physician: Yes Changes to H&P: No
[2023-03-21 16:37] VITALS: BP 85/50; PULSE 78; RESP 13; TEMP 36.6; O2SAT 98
--- NOTE | 2023-03-21 16:39 | P.OP.EGD&C_ITS ---
Operative Date/Time/Diagnoses Date of procedure: 03/21/23 Time of procedure: 16:39 Pre-op diagnosis: Blood per rectum Post-op diagnosis: other (Gastritis) Procedure & Clinicians Study performed: Diagnostic esophagoduodenoscopy and colonoscopy Same procedure as scheduled: Yes Indications: 77-year-old woman with melena here for diagnostic EGD and colonoscopy Surgeon: Danilo Barney Procedure Notes Procedure in detail: The history and physical was performed/updated and the patient is ASA class is 2. The procedure was discussed in detail with the patient. Potential risks complications including infection, bleeding, missed diagnosis, perforation, need for surgery, and were explained. Their questions were answered and informed consent was obtained. Patient placed in left lateral decubitus position. Time out was performed. Procedural sedation was administered by Anesthesia. A bite block was placed. the scope was inserted into the mouth and advanced through the esophagus and into the stomach. Stomach was notable for mild gastritis no distinct ulcer. Biopsies of the stomach were taken with forceps.. The pylorus was intubated and the duodenum was normal to the 2nd portion. The scope was withdrawn into the esophagus the Z line was seen at 35 cm from the incisions. There was no Leihg's esophagitis, esophageal masses or strictures. Stomach was desufflated and scope removed. Examination began with a thorough inspection of the perianal area there was no evidence of fissures, fistulae, external hemorrhoids or cutaneous malignancy. The colonoscopy scope was then placed into the anal canal and was advanced to th e cecum, which was identified by the ileocecal valve, the appendiceal orifice and the confluence of the taenia. The scope was then slowly withdrawn examining colon thoroughly in all directions, irrigating it of any residual stool. No masses polyps. Normal colonoscopy. The patient tolerated the procedure well. They will be discharged once criteria are met. The prep was of good/excellent quality. The withdrawl time was 6 minutes. Specimen(s): other (Gastric) Impression: Gastritis Post-procedure Plan for aftercare: Continue Protonix for the next 1 month. Will notify with biopsies. No need for further colonoscopy unless symptomatic. Disposition: same day surgery
[2023-03-21 16:42] VITALS: BP 89/52; PULSE 69; RESP 12; O2SAT 97
[2023-03-21 16:47] VITALS: BP 98/54; PULSE 68; RESP 12; O2SAT 98
== END 2023-03-21 17:30 | disposition home or self-care (01) ==
PROVIDERS: Family Provider Family Medicine; PCP Family Medicine; Referring Provider Surgery; Visit Provider Surgery
PROC: 0DJ08ZZ Inspection of Upper Intestinal Tract, Via Natural or Artificial Opening Endoscopic (ICD-10-PCS; CPT 43235; principal; 2023-03-21 15:30)
PROC: 0DJD8ZZ Inspection of Lower Intestinal Tract, Via Natural or Artificial Opening Endoscopic (ICD-10-PCS; CPT 45378; 2023-03-21 15:30)
DX: K62.5 Hemorrhage of anus and rectum (principal); K29.50 Unspecified chronic gastritis without bleeding
CPT/HCPCS: 45378; 43239

== ENCOUNTER → 2023-07-12 11:54 | Outpatient (ROUT) | payer MEDICARE, OTHER, SELFPAY ==
[2023-07-12 12:56] LABS: Influenza A - CEPHEID Flu A NEGATIVE (NEGATIVE); Influenza B - CEPHEID Flu B NEGATIVE (NEGATIVE); Respiratory Syncytial Virus Negative (Negative)
[2023-07-12 12:59] LABS: COVID-19 CEPHEID 4-PLEX PCR Negative (Negative)
== END ==
PROVIDERS: Family Provider Family Medicine; PCP Family Medicine; Visit Provider Family Medicine
DX: R05.1 Acute cough (principal)
CPT/HCPCS: 0241U

== ENCOUNTER → 2024-01-09 14:01 | Outpatient (CLI) | payer MEDICARE, OTHER, SELFPAY ==
--- NOTE | 2024-01-09 14:04 | DI.RAD.S_ITS ---
PROCEDURE: XR DEXA AXIAL SKELETON INDICATIONS: OSTEOPENIA COMPARISON: [facility], CR, XR DEXA AXIAL SKELETON, 04/05/2022, 15:29. [facility], CR, XR DEXA AXIAL SKELETON, 01/14/2020, 12:58. FINDINGS: Lumbar Spine: Bone mineral density 1.061 g/cm2, T score 0.1. Prior DEXA was performed using dissimilar scan type or analysis method. Left Hip: Bone mineral density is 0.785 g/cm2, T score -1.3. Prior DEXA was performed using dissimilar scan type or analysis method. Left Femoral Neck: Bone mineral density 0.576 g/cm2, T score -2.5. Right Hip: Bone mineral density 0.854 g/cm2, T score -0.7. Prior DEXA was performed using dissimilar scan type or analysis method. Right Femoral Neck: Bone mineral density 0.625 g/cm2, T score -2.0. Fracture Risk Calculation (when applicable): FRAX score not reported due to T-score less than or equal to -2.5. (T score greater or equal to -1.0 to: NORMAL) (T score from -1.1 to -2.4: OSTEOPENIA) (T score less than or equal to -2.5: OSTEOPOROSIS) IMPRESSION: But WHO criteria, the patient has osteoporosis. Follow-up guidelines as follows: Osteoporosis: Consider a repeat DEXA and Vertebral Fracture Assessment (VFA) exam in 2 years or sooner if medically necessary, to reassess this patient's status. Osteopenia: Consider a repeat DEXA in 2-3 years to reassess this patient's status, or if there is a new clinical indication. Normal: Consider a repeat DEXA in 5 years or sooner, or if there is a new clinical indication. All treatment decisions require clinical judgment and consideration of individual patient factors, including patient preferences, comorbidities, previous drug use, risk factors not captured in the FRAX model (e.g., frailty, falls, vitamin D deficiency, increased bone turnover, interval significant decline in bone density ) and possible under- or over-estimation of fracture risk by FRAX. In addition, the NOF Guide recommends that FDA-approved medical therapies be considered in postmenopausal women and men age >= 50 years with a: * Hip or vertebral (clinical or morphometric) fracture * T-score of <=-2.5 at the spine or hip * Ten-year fracture probability by FRAX of >= 3% for hip fracture or >=20% for major osteoporotic fracture. People with diagnosed cases of osteoporosis or at high risk for fracture should have regular bone mineral density tests. For patients eligible for Medicare, routine testing is allowed once every 2 years. The testing frequency can be increased to one year for patients who have rapidly progressing disease, those who are receiving or discontinuing medical therapy to restore bone mass, or have additional risk factors. Approved by: Skinny De Luna M.D. on 01/09/2024 at 22:29
--- NOTE | 2024-01-09 14:05 | DI.MG.S_ITS ---
UNILATERAL RIGHT DIGITAL SCREENING MAMMOGRAM 3D/2D WITH CAD: 01/09/2024 CLINICAL: Routine screening. Personal history of left breast cancer. Comparison is made to exams dated: 01/06/2023 mammogram, 01/05/2022 mammogram, and 01/04/2021 mammogram - [facility]. The right breast is heterogeneously dense, which may obscure small masses (category c / 51-75% glandular tissue). Current study was also evaluated with a Computer Aided Detection (CAD) system. No significant masses, calcifications, or other findings are seen in the breast. There has been no significant interval change. IMPRESSION: NEGATIVE There is no mammographic evidence of malignancy. A 1 year screening mammogram is recommended. This exam was interpreted at Station ID: [id number]. NOTE: For mammograms, a report in lay terms will be sent to the patient. Approximately 15% of breast malignancies will not be visualized mammographically. In the management of a palpable breast mass, a negative mammogram must not discourage biopsy of a clinically suspicious lesion. Electronically Signed By: Michaela richey/bo:01/09/2024 16:43:29 copy to: Zuleima Stokes letter sent: Normal Exam ACR BI-RADS Category 1: Negative [id number]
== END ==
PROVIDERS: Family Provider Family Medicine; PCP Family Medicine; Referring Provider Family Medicine; Visit Provider Family Medicine
DX: M81.0 Age-related osteoporosis without current pathological fracture (principal); Z12.31 Encounter for screening mammogram for malignant neoplasm of breast; Z85.3 Personal history of malignant neoplasm of breast; R92.321 Mammographic fibroglandular density, right breast
CPT/HCPCS: 77063; 77067; 77080

== ENCOUNTER → 2024-07-30 15:26 | Outpatient (CLI) | payer MEDICARE, OTHER, SELFPAY ==
--- NOTE | 2024-07-30 15:29 | DI.RAD.S_ITS ---
PROCEDURE: XR CERVICAL SPINE 2V OR 3V INDICATIONS: SHOULDER PAIN TECHNIQUE: 3 view(s) of the cervical spine were acquired. COMPARISON: None. FINDINGS: Bones: No fractures or dislocations to the T1 level. The lateral masses of C1 appear intact on the odontoid view. No suspicious bony lesions. Straightening of the cervical lordosis. Intervertebral disc height loss at C3-C4 and C4-C5. Minimal facet arthropathy at the C2-C3 and C3-C4 levels. Soft tissues: No prevertebral soft tissue swelling. IMPRESSION: No acute radiographic abnormality of the cervical spine. Dictated by: Bryant Fuentes M.D. on 07/30/2024 at 19:15 Approved by: Bryant Fuentes M.D. on 07/30/2024 at 19:16
--- NOTE | 2024-07-30 15:29 | DI.RAD.S_ITS ---
PROCEDURE: XR SHOULDER LT MIN 2V INDICATIONS: SHOULDER PAIN TECHNIQUE: 3 views of the shoulder were acquired. COMPARISON: None. FINDINGS: Bones: No fractures or dislocations. Moderate acromioclavicular and mild glenohumeral joint degeneration. No suspicious bony lesions. Visualized ribs appear intact. Soft tissues: No suspicious soft tissue calcifications. Surgical clips along the left chest wall. IMPRESSION: No acute bony abnormality. Moderate acromioclavicular and mild glenohumeral joint degeneration. Dictated by: Davis Machuca M.D. on 07/31/2024 at 10:55 Approved by: Davis Machuca M.D. on 07/31/2024 at 10:56
== END ==
LOC: RAD 15:28
PROVIDERS: Family Provider Family Medicine; PCP Family Medicine; Referring Provider Family Medicine; Visit Provider Family Medicine
DX: M19.012 Primary osteoarthritis, left shoulder (principal); M25.512 Pain in left shoulder; R20.2 Paresthesia of skin; G56.02 Carpal tunnel syndrome, left upper limb; M54.12 Radiculopathy, cervical region; M62.838 Other muscle spasm; G89.29 Other chronic pain
CPT/HCPCS: 72040; 73030

== ENCOUNTER → 2024-08-29 13:21 | Outpatient (CLI) | payer MEDICARE, OTHER, SELFPAY | PROVIDERS: Family Provider Family Medicine; PCP Family Medicine; Referring Provider Family Medicine; Visit Provider Family Medicine | DX: R20.2 Paresthesia of skin (principal); G56.02 Carpal tunnel syndrome, left upper limb; M54.12 Radiculopathy, cervical region | CPT/HCPCS: 95886; 95910 ==

== ENCOUNTER → 2025-01-10 09:11 | Outpatient (CLI) | payer MEDICARE, OTHER, SELFPAY ==
--- NOTE | 2025-01-10 09:14 | DI.MG.S_ITS ---
MM screening mammo unilat RT: 01/10/2025. BI-RADS: 1 CLINICAL: 79-year old female for right screening mammogram. No Tyrer-Cuzick risk score calculation due to the patient's personal history of breast cancer. Patient reports a history of left breast carcinoma diagnosed at age 76. Status-post left mastectomy with hormonal therapy. No first-degree family history of breast cancer. Patient was diagnosed within the last 5 years. The patient had a prior left breast biopsy. PRIOR EXAMS 01/09/2024, 01/06/2023, 02/10/2022, 02/03/2022, 01/05/2022, 01/04/2021, 12/31/2019, 10/29/2018, 09/29/2017, 09/04/2015. MAMMOGRAPHY TECHNIQUE: 2D and 3D (tomosynthesis) digital mammographic views obtained, with additional images as needed for full coverage. Current study was also evaluated with a Computer Aided Detection (CAD) system. DENSITY Right: C. The breasts are heterogeneously dense, which may obscure small masses. MAMMOGRAPHY FINDINGS Right: No suspicious mass, asymmetry, microcalcification, or other abnormality seen. IMPRESSION: Right * No evidence of malignancy. RECOMMENDATIONS Right * Annual screening mammography. OVERALL ASSESSMENT CATEGORY BI-RADS-1: Negative. The [employer] recommends annual screening mammography beginning at age 40 for women with average risk of breast cancer. ELECTRONICALLY SIGNED: Piyush Brasher M.D. on 01/10/2025 at 02:01:01 PM PT Interpreting Station ID: [id number]
--- NOTE | 2025-01-10 09:15 | DI.RAD.S_ITS ---
PROCEDURE: XR DEXA AXIAL SKELETON INDICATIONS: OSTEOPOROSIS COMPARISON: [facility], CT, CT ABDOMEN PELVIS W CON, 03/10/2023, 14:15. [facility], CR, XR DEXA AXIAL SKELETON, 01/09/2024, 14:56. [facility], CR, XR DEXA AXIAL SKELETON, 04/05/2022, 15:29. [facility], CR, XR DEXA AXIAL SKELETON, 01/14/2020, 12:58. [facility], CR, DEXA AXIAL SKELETON, 09/29/2017, 12:51. FINDINGS: Lumbar Spine: Bone mineral density 1.047 g/cm2, T score 0, previously 0.1. Left Femoral Neck: Bone mineral density 0.563 g/cm2, T score -2.6. Left Hip: Bone mineral density 0.756 g/cm2, T score -1.5, previously -1.3. Fracture Risk Calculation (when applicable): 10-year fracture risk of a major osteoporotic fracture 16 percent and of a hip fracture 6.0 percent. (T score greater or equal to -1.0 to: NORMAL) (T score from -1.1 to -2.4: OSTEOPENIA) (T score less than or equal to -2.5: OSTEOPOROSIS) IMPRESSION: 1. Normal bone density of the lumbar spine. 2. Osteoporosis of the left femoral neck. 3. Osteopenia of the left hip. Follow-up guidelines as follows: Osteoporosis: Consider a repeat DEXA and Vertebral Fracture Assessment (VFA) exam in 2 years or sooner if medically necessary, to reassess this patient's status. Osteopenia: Consider a repeat DEXA in 2-3 years to reassess this patient's status, or if there is a new clinical indication. Normal: Consider a repeat DEXA in 5 years or sooner, or if there is a new clinical indication. All treatment decisions require clinical judgment and consideration of individual patient factors, including patient preferences, comorbidities, previous drug use, risk factors not captured in the FRAX model (e.g., frailty, falls, vitamin D deficiency, increased bone turnover, interval significant decline in bone density ) and possible under- or over-estimation of fracture risk by FRAX. In addition, the NOF Guide recommends that FDA-approved medical therapies be considered in postmenopausal women and men age >= 50 years with a: * Hip or vertebral (clinical or morphometric) fracture * T-score of <=-2.5 at the spine or hip * Ten-year fracture probability by FRAX of >= 3% for hip fracture or >=20% for major osteoporotic fracture. Dictated by: Bryant Fuentes M.D. on 01/10/2025 at 11:52 Approved by: Bryant Fuentes M.D. on 01/10/2025 at 11:58
== END ==
PROVIDERS: Family Provider Family Medicine; PCP Family Medicine; Referring Provider Family Medicine; Visit Provider Family Medicine
DX: Z12.31 Encounter for screening mammogram for malignant neoplasm of breast (principal); Z85.3 Personal history of malignant neoplasm of breast; Z90.12 Acquired absence of left breast and nipple; R92.331 Mammographic heterogeneous density, right breast; M81.0 Age-related osteoporosis without current pathological fracture
CPT/HCPCS: 77063; 77067; 77080